=== PATIENT | female | born 1980 | race Caucasian/White ===

== ENCOUNTER 2016-12-26 18:06 | Emergency (ER) | payer BC ==
[~2016-12-26] VITALS: Ht 177.8 cm; Wt 107.4 kg
[~2016-12-26 18:06] MED LIST: ALPR-411 PO; BIOTCAP2 PO; BUPR100T8 PO; CALCTAB7 PO; CYAN10002 INJ; DIPH-416 PO; ESTR0.5T3 PO; FROV2.5T5 PO; LAMO200T PO; LAMO200T38 PO; LCTXP PO; LEVO75TA PO; LITH600C PO; LTHSR/300 PO; MAGN400T6 PO; MELO15TA10 PO; OMEP40CA PO; OXYC-57 PO; PEDICHW50 PO; PRAM1TAB47 PO; PROP20TA4 PO; RISP1TAB68 PO; TIZA4CAP PO; ZNTT/150 PO
[2016-12-26 18:10] VITALS: TEMP 36.7; Ht 177.8 cm; Wt 107.4 kg
[2016-12-26] MEDS ORDERED: KETOROLAC TROMETHAMINE 30 MG/ML VIAL IV STA (18:20)
[2016-12-26] MEDS ORDERED: ONDANSETRON INJ 2 MG/ML 2 ML VIAL IV STA (18:20)
[2016-12-26] MEDS ORDERED: MAGN400T6 PO (18:42)
[2016-12-26] MEDS ORDERED: PRAM1TAB47 PO (18:42)
[2016-12-26] MEDS ORDERED: PRED10TA PO (18:42)
[2016-12-26] MEDS ORDERED: RISP1TAB68 PO (18:42)
[2016-12-26] MEDS ORDERED: ESTR0.5T3 PO (18:42)
[2016-12-26] MEDS ORDERED: PROP20TA4 PO (18:42)
[2016-12-26] MEDS ORDERED: TIZA4CAP PO (18:42)
[2016-12-26] MEDS ORDERED: MELO15TA10 PO (18:42)
[2016-12-26] MEDS ORDERED: AZIT250T PO (18:42)
[2016-12-26] MEDS ORDERED: OMEP40CA41 PO (18:45)
[2016-12-26 18:53] LABS: BASO % 0.1 %; BASO ABS # 0.01 K/uL (0-0.2); COMPLETE YES; EOS % 0.2 %; HEMATOCRIT 40.3 % (37-47); IG% 0.2 %; LYMPH % 11.1 %; LYMPH ABS # 1.23 K/uL (1.2-3.4); MEAN CELL VOLUME 89.6 fL (80-100); MEAN CORPUSCULAR HEMOGLOBIN 29.8 pg (25-34); MEAN CORPUSCULAR HGB CONC 33.3 g/dl (32-36); MEAN PLATELET VOLUME 9.9 fL (7.4-10.4); MONO % 4.7 %; NEUT % 83.7 %; PLATELET COUNT 330 K/uL (130-400); WHITE BLOOD COUNT 11.05 K/uL (4.8-10.8)
[2016-12-26 19:03] LABS: MANUAL MICROSCOPIC REQUIRED? NO; REVIEW REQ? NO; URINE APPEARANCE CLEAR (CLEAR); URINE BILIRUBIN NEG (NEG); URINE COLOR YELLOW; URINE NITRITE NEG (NEG); URINE SPECIFIC GRAVITY 1.014 (1.000-1.030); UROBILINOGEN NEG (NEG); ZZUR CULT IF INDIC CLEAN CATCH NO
[2016-12-26 19:09] LABS: ALT/SGPT 21 U/L (12-78); BLOOD UREA NITROGEN 15 mg/dl (7-18); BUN/CREATININE RATIO 16.2 (10-20); CALCIUM 9.7 mg/dl (8.5-10.1); CARBON DIOXIDE 24 mmol/L (21-32); CHLORIDE 109 mmol/L (98-107); CREATININE 0.93 mg/dl (0.60-1.20); GLUCOSE 112 mg/dl (70-99); POTASSIUM 4.1 mmol/L (3.5-5.1); SODIUM 142 mmol/L (136-145)
[2016-12-26 19:12] LABS: ALKALINE PHOSPHATASE 110 U/L (45-117); AST/SGOT 11 U/L (15-37)
--- NOTE | 2016-12-26 19:35 | DIAGNOSTIC IMAGING REPORT ---
LUMBAR SPINE 2 OR 3 VIEWS CLINICAL HISTORY: lower back pain pain COMPARISON STUDY: None FINDINGS: Negative study. No evidence for compression deformity IMPRESSION: Negative study Electronically signed by: Ankush Pulido M.D. 12/26/2016 7:34 PM Dictated Date/Time: 12/26/2016 7:33 PM
[2016-12-26 20:00] VITALS: BP 132/80; PULSE 54; O2SAT 97
--- NOTE | 2016-12-26 20:56 | EMERGENCY ROOM VISIT NOTE ---
History Report prepared by Rock: Colleen Jacobo Under the Supervision of: Dr. Darshan Vizcaino D.O. First contact with patient: 18:12 Chief Complaint: URINARY SYMPTOMS Stated Complaint: SYMPTOMS OF KIDNEY INFECTION Nursing Triage Summary: pt report yesterday started with bilat lower back pain radiates around to abd. has hx of kidney infections. History of Present Illness The patient is a 36 year old female who presents to the Emergency Room with complaints of constant urinary symptoms beginning yesterday. The patient complains of bilateral lower back pain that radiates to both flanks. She also complains of urinary frequency, urgency and dysuria. She notes that she has a history of kidney infections and believes that that is what she has today. She denies any vomiting, cough, chest pain, shortness of breath, heavy lifting, vaginal bleeding, and vaginal discharge. She notes that she had bladder reconstructive surgery. The patient reports that she is being treated for a sinus infection and is on a z pac that she she started 2 days ago. She notes that she took 2 days of 50 mg. She states that she had a complete hysterectomy and appendectomy previously. Source of History: patient Onset: yesterday Position: other (urinary) Quality: burning Timing: constant Modifying Factors (Worsening): urination Associated Symptoms: + back pain, + nausea, + urinary symptoms, No SOB, No chest pain, No cough, No vomiting Note: She denies any heavy lifting, vaginal bleeding, and vaginal discharge. Review of Systems See HPI for pertinent positives & negatives. A total of 10 systems reviewed and were otherwise negative. Past Medical & Surgical Medical Problems: (1) Allergic rhinitis (2) Bipolar disorder (3) Depression (4) Endometriosis (5) Hypothyroidism (6) Migraine (7) Obesity (BMI 30-39.9) (8) Restless leg syndrome (9) Sleep apnea (10) Stricture of ureter Surgical Problems: (1) H/O gastric bypass (2) History of appendectomy (3) History of bladder surgery (4) History of hysterectomy (5) History of tonsillectomy and adenoidectomy Family History Diabetes mellitus Heart disease Hypertension Social History Smoking Status: Never Smoker Alcohol Use: none Drug Use: none Marital Status: single Housing Status: lives with family Occupation Status: employed Current/Historical Medications Scheduled Azithromycin (Zithromax), 250 MG PO DAILY Biotin (Biotin 5000), 5 MG PO DAILY Bupropion (Wellbutrin Sr), 100 MG PO BID Calcium Carbonate-Vitamin D W/ (Caltrate 600 Plus), 2 TAB PO BID Estradiol (Estradiol), 1 TAB PO DAILY Frovatriptan Succinate (Frova), 2.5 MG PO PRN/UD Lactobacillus Acidophilus (Lactinex Granules), 1 GM PO TIDM Lamotrigine (Lamictal), 200 MG PO QAM Lamotrigine (Lamictal), 100 MG PO HS Levothyroxine Sodium (Synthroid), 75 MCG PO DAILY Chisana Carbonate (Chisana Carbonate), 100 MG PO QAM Chisana Carbonate (Chisana Carbonate), 300 MG PO HS Magnesium Oxide (Mag-Ox), 400 MG PO DAILY Meloxicam (Mobic), 15 MG PO DAILY Omeprazole (Prilosec), 40 MG PO DAILY Pramipexole Dihydrochloride (Mirapex), 0.5 MG PO QPM Prednisone (Prednisone), 10 MG PO DAILY Propranolol Hcl (Inderal), 20 MG PO BID Risperidone (Risperdal), 1 MG PO QPM Scheduled PRN Alprazolam (Alprazolam), 0.5 MG PO BID PRN for Anxiety/Insomnia Diphenoxylate/Atropine (Lomotil), 1 TAB PO Q6 PRN for Diarrhea Ranitidine (Zantac), 150 MG PO BID PRN for ACID REFLUX Tizanidine (Zanaflex), 4 MG PO HS PRN for Muscle Spasms Allergies Coded Allergies: Quinolones (Verified Allergy, Mild, LVQ = HIVES, MELVIN. CIPRO, 01/09/16) Butorphanol (Verified Allergy, Unknown, _, 01/09/16) Iodine (Verified Allergy, Unknown, SEAFOOD = SWELLING, HIVES, 01/09/16) Levofloxacin (Verified Allergy, Unknown, HIVES, 01/09/16) TOLERATES CIPRO PER CONVERSATION WITH DR. HILTON Shellfish (Verified Allergy, Unknown, HIVES, 01/09/16) Physical Exam Vital Signs Date Time Temp Pulse Resp B/P Pulse Ox O2 Delivery O2 Flow Rate FiO2 12/26/16 20:00 54 16 132/80 97 12/26/16 18:10 36.7 55 18 114/71 97 Room Air Physical Exam GENERAL: sitting up in bed, no distress, non-toxic EYE EXAM: normal conjunctiva OROPHARYNX: no exudate, no erythema, lips, buccal mucosa, and tongue normal and mucous membranes are moist NECK: supple, no nuchal rigidity, no adenopathy, non-tender LUNGS: Clear to auscultation. Normal chest wall mechanics HEART: no murmurs, S1 normal and S2 normal ABDOMEN: abdomen soft, non-tender, normo-active bowel sounds, no masses, no rebound or guarding. BACK: Mild bilateral lumbar paraspinal tenderness, no CVA tenderness. SKIN: no rashes and no bruising UPPER EXTREMITIES: upper extremities are grossly normal. LOWER EXTREMITIES: No pitting edema. NEURO EXAM: Normal sensorium, cranial nerves II-XII grossly intact, normal speech, no gross weakness of arms, no gross weakness of legs. Medical Decision & Procedures ER Provider Diagnostic Interpretation: Xray results per the radiologist and my interpretation. LUMBAR SPINE 2 OR 3 VIEWS FINDINGS: Negative study. No evidence for compression deformity IMPRESSION: Negative study Electronically signed by: Ankush Pulido M.D. 12/26/2016 7:34 PM Dictated Date/Time: 12/26/2016 7:33 PM Laboratory Results 12/26/16 18:40 Red Blood Count 4.50, Mean Corpuscular Volume 89.6, Mean Corpuscular Hemoglobin 29.8, Mean Corpuscular Hemoglobin Concent 33.3, Mean Platelet Volume 9.9, Neutrophils (%) (Auto) 83.7, Lymphocytes (%) (Auto) 11.1, Monocytes (%) (Auto) 4.7, Eosinophils (%) (Auto) 0.2, Basophils (%) (Auto) 0.1, Neutrophils # (Auto) 9.25, Lymphocytes # (Auto) 1.23, Monocytes # (Auto) 0.52, Eosinophils # (Auto) 0.02, Basophils # (Auto) 0.01 12/26/16 18:40 Test 12/26/16 18:33 12/26/16 18:40 Urine Color YELLOW Urine Appearance CLEAR (CLEAR) Urine pH 7.0 (4.5-7.5) Urine Specific [place] 1.014 (1.000-1.030) Urine Protein NEG (NEG) Urine Glucose (UA) NEG (NEG) Urine Ketones NEG (NEG) Urine Occult Blood NEG (NEG) Urine Nitrite NEG (NEG) Urine Bilirubin NEG (NEG) Urine Urobilinogen NEG (NEG) Urine Leukocyte Esterase NEG (NEG) Urine WBC (Auto) 0 /hpf (0-5) Urine RBC (Auto) 0-4 /hpf (0-4) Urine Hyaline Casts (Auto) 0 /lpf (0-5) Urine Epithelial Cells (Auto) 5-10 /lpf (0-5) Urine Bacteria (Auto) NEG (NEG) Urine Test NEG (NEG) White Blood Count 11.05 K/uL (4.8-10.8) Red Blood Count 4.50 M/uL (4.2-5.4) Hemoglobin 13.4 g/dL (12.0-16.0) Hematocrit 40.3 % (37-47) Mean Corpuscular Volume 89.6 fL (80-100) Mean Corpuscular Hemoglobin 29.8 pg (25-34) Mean Corpuscular Hemoglobin Concent 33.3 g/dl (32-36) Platelet Count 330 K/uL (130-400) Mean Platelet Volume 9.9 fL (7.4-10.4) Neutrophils (%) (Auto) 83.7 % Lymphocytes (%) (Auto) 11.1 % Monocytes (%) (Auto) 4.7 % Eosinophils (%) (Auto) 0.2 % Basophils (%) (Auto) 0.1 % Neutrophils # (Auto) 9.25 K/uL (1.4-6.5) Lymphocytes # (Auto) 1.23 K/uL (1.2-3.4) Monocytes # (Auto) 0.52 K/uL (0.11-0.59) Eosinophils # (Auto) 0.02 K/uL (0-0.5) Basophils # (Auto) 0.01 K/uL (0-0.2) RDW Standard Deviation 41.7 fL (36.4-46.3) RDW Coefficient of Variation 12.7 % (11.5-14.5) Immature Granulocyte % (Auto) 0.2 % Immature Granulocyte # (Auto) 0.02 K/uL (0.00-0.02) Anion Gap 9.0 mmol/L (3-11) Est Creatinine Clear Calc Drug Dose 111.0 ml/min Estimated GFR () 91.6 Estimated GFR (Non- 79.1 BUN/Creatinine Ratio 16.2 (10-20) Calcium Level 9.7 mg/dl (8.5-10.1) Total Bilirubin 0.3 mg/dl (0.2-1) Direct Bilirubin < 0.1 mg/dl (0-0.2) Aspartate Amino Transf (AST/SGOT) 11 U/L (15-37) Alanine Aminotransferase (ALT/SGPT) 21 U/L (12-78) Alkaline Phosphatase 110 U/L (45-117) Total Protein 7.1 gm/dl (6.4-8.2) Albumin 3.7 gm/dl (3.4-5.0) Lipase 99 U/L (73-393) Laboratory results per my review. Medications Administered Medications (Trade) Dose Ordered Sig/Gely Route Start Time Stop Time Status Last Admin Dose Admin Ketorolac Tromethamine (Toradol Inj) 30 mg NOW STAT IV 12/26/16 18:20 12/26/16 18:21 DC 12/26/16 18:44 30 MG Ondansetron HCl (Zofran Inj) 4 mg NOW STAT IV 12/26/16 18:20 12/26/16 18:21 DC 12/26/16 18:43 4 MG ED Course ED COURSE: Vital signs were reviewed and showed bradycardia The patients medical record was reviewed The above diagnostic studies were performed and reviewed. ED treatments and interventions as stated above. 1811: The patient was evaluated in room B2. A complete history and physical examination was performed. 0: Zofran Inj 4mg IV, Toradol Inj 30mg IV. 1914: I updated the patient. She declines a pelvic exam. 1922: Upon reevaluation, the patient is hemodynamically stable.I discussed my findings with the patient and she understands and agrees with the treatment plan. Based on the patients age, coexisting illnesses, exam and lab findings the decision to treat as an outpatient was made. The patient remained stable while under my care. The patient appeared well at the time of discharge. Medical Decision Differential diagnoses includes but is not limited to gastritis, peptic ulcer disease, GERD, gallbladder disease, pancreatitis, small bowel obstruction, acute coronary syndrome, pericarditis, ischemic bowel, irritable bowel disease, irritable bowel syndrome, appendicitis, diverticulitis, malignancy, hernia, urinary tract infection, torsion, /ectopic , perforation, trauma, infectious. Patient is a 36-year-old female who presents the ER for bilateral lower back pain associated with urinary frequency, dysuria and urgency. She has his currently being treated with a Z-Saqib for sinus infection. Labs show a leukocytosis or anemia. BMP along with LFTs, bilirubin and lipase is negative. UA was completely negative with a negative . X-rays of her lumbar spine were negative. She has had normal bowel movements. I do not believe that she has an obstruction. Her abdomen was completely benign. Recommended pelvic but she declined. At this time uncertain of the true etiology of her symptoms as her UA is completely clean. I do feel the back pain is muscle skeletal as it is reproducible in the lower lumbar paraspinal region. Uncertain of the cause of the urinary frequency, urgency and dysuria. Recommended following up with her primary care doctor in 1-2 days for repeat urine. Patient was well-appearing and discharged follow with her PCP. Discussed with Pt concerning signs and symptoms to watch out for. Pt was instructed to follow up with their PCP and discussed with the patient their option to return to the ED at anytime for persistent or worsening symptoms. The appropriate anticipatory guidance and out-patient management, including indications for return to the emergency department, were explained at length to the patient and understood. Impression Primary Impression: Lower back pain Additional Impression: Symptoms involving urinary system Scribe Attestation The scribe's documentation has been prepared under my direction and personally reviewed by me in its entirety. I confirm that the note above accurately reflects all work, treatment, procedures, and medical decision making performed by me. Departure Information Dispostion Home / Self-Care Referrals Estevan Carter M.D.([place]) (PCP) Forms HOME CARE DOCUMENTATION FORM, IMPORTANT VISIT INFORMATION Patient Instructions Back Pain - [facility], Dysuria, My [facility] Additional Instructions Please follow up with your primary care doctor with in the next 24 hours. Any worsening of your symptoms, please return to the ED immediately. This includes fevers greater than 100.4, worsening of your urinary symptoms, weakness or numbness in her legs, worsening pain in her back, or any other concerning signs or symptoms from your standpoint. Please make sure that you follow with her primary care doctor as stated above if her symptoms persist to have a repeat UA/urinalysis. Your UA here and blood work was unremarkable but if your symptoms persist you must follow up. Problem Qualifiers Primary Impression: Lower back pain Chronicity: acute Back pain laterality: bilateral Sciatica presence: unspecified whether sciatica present Qualified Codes: M54.5 - Low back pain
== END 2016-12-26 20:02 | disposition home or self-care (01) ==
LOC: C.EDB 18:07
DX: M54.5 Low back pain (principal); R11.0 Nausea; R35.0 Frequency of micturition; R39.15 Urgency of urination; R30.0 Dysuria; F31.9 Bipolar disorder, unspecified; E03.9 Hypothyroidism, unspecified; G47.30 Sleep apnea, unspecified; Z79.899 Other long term (current) drug therapy; Z88.8 Allergy status to other drugs, medicaments and biological substances; Z87.448 Personal history of other diseases of urinary system; Z83.3 Family history of diabetes mellitus; Z82.49 Family history of ischemic heart disease and other diseases of the circulatory system

== ENCOUNTER 2017-01-25 13:47 | Emergency (ER) | payer BC ==
[~2017-01-25] VITALS: Ht 177.8 cm; Wt 109.8 kg
[~2017-01-25 13:47] MED LIST changes: +AZIT250T PO; -CYAN10002 INJ; -OMEP40CA PO; +OMEP40CA41 PO; -OXYC-57 PO; -PEDICHW50 PO; +PRED10TA PO; -ZNTT/150 PO
[2017-01-25 13:59] VITALS: TEMP 36.7; Ht 177.8 cm; Wt 109.8 kg
[2017-01-25] MEDS ORDERED: ONDANSETRON INJ 2 MG/ML 2 ML VIAL IV STA (14:15)
[2017-01-25] MEDS ORDERED: SODIUM CHLORIDE 0.9% 1000ML 1,000 ML IV STA (14:15)
[2017-01-25] MEDS ORDERED: MECLIZINE HCL 25 MG TAB PO STA (14:15)
[2017-01-25 14:34] LABS: BASO % 0.3 %; BASO ABS # 0.02 K/uL (0-0.2); COMPLETE YES; EOS % 7.9 %; HEMATOCRIT 40.3 % (37-47); IG% 0.4 %; LYMPH % 21.3 %; LYMPH ABS # 1.69 K/uL (1.2-3.4); MEAN CELL VOLUME 91.6 fL (80-100); MEAN CORPUSCULAR HGB CONC 32.8 g/dl (32-36); MEAN PLATELET VOLUME 9.7 fL (7.4-10.4); MONO % 6.7 %; NEUT % 63.4 %; PLATELET COUNT 322 K/uL (130-400); WHITE BLOOD COUNT 7.93 K/uL (4.8-10.8)
[2017-01-25 14:50] LABS: URINE APPEARANCE CLEAR (CLEAR); URINE BILIRUBIN NEG (NEG); URINE COLOR YELLOW; URINE NITRITE NEG (NEG); URINE PH 7.5 (4.5-7.5); URINE SPECIFIC GRAVITY 1.007 (1.000-1.030); UROBILINOGEN NEG (NEG); ZZUR CULT IF INDIC CLEAN CATCH NO
[2017-01-25 14:53] LABS: MANUAL MICROSCOPIC REQUIRED? NO; REVIEW REQ? NO
[2017-01-25 14:55] LABS: ALT/SGPT 31 U/L (12-78); AST/SGOT 17 U/L (15-37); BLOOD UREA NITROGEN 12 mg/dl (7-18); BUN/CREATININE RATIO 12.6 (10-20); CALCIUM 9.3 mg/dl (8.5-10.1); CARBON DIOXIDE 27 mmol/L (21-32); CHLORIDE 110 mmol/L (98-107); CREATININE 0.99 mg/dl (0.60-1.20); GLUCOSE 99 mg/dl (70-99); POTASSIUM 4.1 mmol/L (3.5-5.1); SODIUM 143 mmol/L (136-145)
--- NOTE | 2017-01-25 15:00 | DIAGNOSTIC IMAGING REPORT ---
HEAD CT NONCONTRAST CT DOSE: 638.56 mGycm HISTORY: dizziness, nausea TECHNIQUE: Multiaxial CT images of the head were performed without the use of intravenous contrast. Automated exposure control was utilized for this study. Comparison: None. Findings: Small fluid level within the left maxillary sinus. The calvarium and skull base are intact. The ventricles and sulci are within normal limits. There is no mass, hematoma, midline shift, or acute infarct. Impression: No acute intracranial abnormality. Small fluid level within the left maxillary sinus. Electronically signed by: Hebert Rose M.D. 01/25/2017 2:58 PM Dictated Date/Time: 01/25/2017 2:55 PM
[2017-01-25 15:06] LABS: ALB/GLOB RATIO 1.1 (0.9-2); ALKALINE PHOSPHATASE 104 U/L (45-117); THYROID STIMULATING HORMONE 0.592 uIu/ml (0.300-4.500)
[2017-01-25] MEDS ORDERED: MECL1TAB42 PO (15:17)
[2017-01-25] MEDS ORDERED: METH4PAK PO (15:17)
[2017-01-25] MEDS ORDERED: AMOX875T PO (15:17)
--- NOTE | 2017-01-25 15:18 | EMERGENCY ROOM VISIT NOTE ---
History First contact with patient: 14:02 Chief Complaint: NAUSEA Stated Complaint: SHAKEY,DIZZY,NAUSEA Nursing Triage Summary: Patient c/o being shakey, dizzy and nauseous. Started Tuesday when she got home from [place] "but it's getting worse". Has had cold/sinus infection since before she went to [place]. History of Present Illness The patient is a 36 year old female who presents to the Emergency Room with complaints of dizziness, nausea and shakiness. The patient states that she returned from [place] 4 days ago and has been nauseous and dizzy since then. She states that prior to going to [place], she had cold symptoms and they have been persistent. She describes the dizziness as a feeling of the room spinning. She states the symptoms have been worsening over the past few days. She has been nauseous but has not vomited. She states she has had a headache off-and-on. It is not the worst headache of her life. The patient states her symptoms are constant. She denies any neck pain, fevers, chest pain, shortness of breath, numbness, weakness, blurred vision or slurred speech. She denies any history of vertigo or dizziness. Review of Systems A complete 10-point Review of Systems was discussed with the patient, with pertinent positives and negatives listed in the History of Present Illness. All remaining Review of Systems questions can be considered negative unless otherwise specified. Past Medical/Surgical History Medical Problems: (1) Allergic rhinitis (2) Bipolar disorder (3) Depression (4) Endometriosis (5) Hypothyroidism (6) Migraine (7) Obesity (BMI 30-39.9) (8) Restless leg syndrome (9) Sleep apnea (10) Stricture of ureter Surgical Problems: (1) H/O gastric bypass (2) History of appendectomy (3) History of bladder surgery (4) History of hysterectomy (5) History of tonsillectomy and adenoidectomy Family History Diabetes mellitus Heart disease Hypertension Social History Smoking Status: Former Smoker Alcohol Use: none Drug Use: none Marital Status: single Housing Status: lives with family Occupation Status: employed Current/Historical Medications Scheduled Amoxicillin & Pot Clavulanate (Augmentin 875-125 mg), 1 TAB PO BID Biotin (Biotin 5000), 5 MG PO DAILY Bupropion (Wellbutrin Sr), 100 MG PO BID Calcium Carbonate-Vitamin D W/ (Caltrate 600 Plus), 2 TAB PO BID Fluconazole (Diflucan), 150 MG PO DAILY Frovatriptan Succinate (Frova), 2.5 MG PO PRN/UD Lactobacillus Acidophilus (Lactinex Granules), 1 GM PO TIDM Lamotrigine (Lamictal), 200 MG PO QAM Lamotrigine (Lamictal), 100 MG PO HS Levothyroxine Sodium (Synthroid), 75 MCG PO DAILY [place] Carbonate ([place] Carbonate), 100 MG PO QAM [place] Carbonate ([place] Carbonate), 300 MG PO HS Magnesium Oxide (Mag-Ox), 400 MG PO DAILY Meloxicam (Mobic), 15 MG PO DAILY Methylprednisolone (Medrol Dosepak), 0 PO DAILY Omeprazole (Prilosec), 40 MG PO DAILY Pramipexole Dihydrochloride (Mirapex), 0.5 MG PO QPM Propranolol Hcl (Inderal), 20 MG PO BID Ranitidine (Zantac), 150 MG PO BID Risperidone (Risperdal), 1 MG PO QPM Tizanidine (Zanaflex), 4 MG PO HS Scheduled PRN Alprazolam (Alprazolam), 0.5 MG PO BID PRN for Anxiety/Insomnia Diphenoxylate/Atropine (Lomotil), 1 TAB PO Q6 PRN for Diarrhea Meclizine Hcl (Meclizine Hcl), 1 TAB PO TID PRN for Dizziness or Vertigo Allergies Coded Allergies: Quinolones (Verified Allergy, Mild, LVQ = HIVES, MELVIN. CIPRO, 01/25/17) Butorphanol (Verified Allergy, Unknown, _, 01/25/17) Iodine (Verified Allergy, Unknown, SEAFOOD = SWELLING, HIVES, 01/25/17) Levofloxacin (Verified Allergy, Unknown, HIVES, 01/25/17) TOLERATES CIPRO PER CONVERSATION WITH DR. [place] Shellfish (Verified Allergy, Unknown, HIVES, 01/25/17) Physical Exam Vital Signs Date Time Temp Pulse Resp B/P Pulse Ox O2 Delivery O2 Flow Rate FiO2 01/25/17 15:30 54 18 112/66 96 Room Air 01/25/17 13:59 36.7 67 17 136/89 97 Room Air Physical Exam VITALS: Vitals are noted on the nurse's note and reviewed by myself. Vital signs stable. GENERAL: This is a 36-year-old female, in no acute distress, nondiaphoretic, well-developed well-nourished. SKIN: The skin was without rashes. HEAD: Normocephalic atraumatic. EARS: External auditory canals clear, tympanic membranes pearly negron without erythema or effusion bilaterally. EYES: Pupils equal round and reactive to light and accommodation. Conjunctivae without injection, sclerae without icterus. Extraocular movements intact. MOUTH: Mucous membranes moist. Tonsils are not enlarged. Pharynx without erythema or exudate. NECK: Supple without nuchal rigidity. No lymphadenopathy. HEART: Regular rate and rhythm without murmurs gallops or rubs. LUNGS: Clear to auscultation bilaterally without wheezes, rales or rhonchi. ABDOMEN: Positive bowel sounds x 4. Soft, nontender to palpation. MUSCULOSKELETAL: Full range of motion bilateral upper and lower extremities. Strength 5/5 throughout. Normal gait. NEURO: Patient was alert and oriented to person place and time. Normal sensation to light and sharp touch. Deep tendon reflexes 2+ throughout. No focal neurological deficits. Normal finger to nose testing. Normal rapid alternating movements. Negative Romberg and pronator drift. Medical Decision & Procedures ER Provider Diagnostic Interpretation: HEAD CT NONCONTRAST CT DOSE: 638.56 mGycm HISTORY: dizziness, nausea TECHNIQUE: Multiaxial CT images of the head were performed without the use of intravenous contrast. Automated exposure control was utilized for this study. Comparison: None. Findings: Small fluid level within the left maxillary sinus. The calvarium and skull base are intact. The ventricles and sulci are within normal limits. There is no mass, hematoma, midline shift, or acute infarct. Impression: No acute intracranial abnormality. Small fluid level within the left maxillary sinus. Laboratory Results 01/25/17 14:20 Red Blood Count 4.40, Mean Corpuscular Volume 91.6, Mean Corpuscular Hemoglobin 30.0, Mean Corpuscular Hemoglobin Concent 32.8, Mean Platelet Volume 9.7, Neutrophils (%) (Auto) 63.4, Lymphocytes (%) (Auto) 21.3, Monocytes (%) (Auto) 6.7, Eosinophils (%) (Auto) 7.9, Basophils (%) (Auto) 0.3, Neutrophils # (Auto) 5.03, Lymphocytes # (Auto) 1.69, Monocytes # (Auto) 0.53, Eosinophils # (Auto) 0.63, Basophils # (Auto) 0.02 01/25/17 14:20 Test 01/25/17 14:20 White Blood Count 7.93 K/uL (4.8-10.8) Red Blood Count 4.40 M/uL (4.2-5.4) Hemoglobin 13.2 g/dL (12.0-16.0) Hematocrit 40.3 % (37-47) Mean Corpuscular Volume 91.6 fL (80-100) Mean Corpuscular Hemoglobin 30.0 pg (25-34) Mean Corpuscular Hemoglobin Concent 32.8 g/dl (32-36) Platelet Count 322 K/uL (130-400) Mean Platelet Volume 9.7 fL (7.4-10.4) Neutrophils (%) (Auto) 63.4 % Lymphocytes (%) (Auto) 21.3 % Monocytes (%) (Auto) 6.7 % Eosinophils (%) (Auto) 7.9 % Basophils (%) (Auto) 0.3 % Neutrophils # (Auto) 5.03 K/uL (1.4-6.5) Lymphocytes # (Auto) 1.69 K/uL (1.2-3.4) Monocytes # (Auto) 0.53 K/uL (0.11-0.59) Eosinophils # (Auto) 0.63 K/uL (0-0.5) Basophils # (Auto) 0.02 K/uL (0-0.2) RDW Standard Deviation 43.0 fL (36.4-46.3) RDW Coefficient of Variation 12.8 % (11.5-14.5) Immature Granulocyte % (Auto) 0.4 % Immature Granulocyte # (Auto) 0.03 K/uL (0.00-0.02) Urine Color YELLOW Urine Appearance CLEAR (CLEAR) Urine pH 7.5 (4.5-7.5) Urine Specific [place] 1.007 (1.000-1.030) Urine Protein NEG (NEG) Urine Glucose (UA) NEG (NEG) Urine Ketones NEG (NEG) Urine Occult Blood NEG (NEG) Urine Nitrite NEG (NEG) Urine Bilirubin NEG (NEG) Urine Urobilinogen NEG (NEG) Urine Leukocyte Esterase NEG (NEG) Urine Test NEG (NEG) Anion Gap 6.0 mmol/L (3-11) Est Creatinine Clear Calc Drug Dose 105.4 ml/min Estimated GFR () 85.0 Estimated GFR (Non- 73.3 BUN/Creatinine Ratio 12.6 (10-20) Calcium Level 9.3 mg/dl (8.5-10.1) Total Bilirubin 0.3 mg/dl (0.2-1) Aspartate Amino Transf (AST/SGOT) 17 U/L (15-37) Alanine Aminotransferase (ALT/SGPT) 31 U/L (12-78) Alkaline Phosphatase 104 U/L (45-117) Troponin I < 0.015 ng/ml (0-0.045) Total Protein 6.9 gm/dl (6.4-8.2) Albumin 3.6 gm/dl (3.4-5.0) Globulin 3.3 gm/dl (2.5-4.0) Albumin/Globulin Ratio 1.1 (0.9-2) Thyroid Stimulating Hormone (TSH) 0.592 uIu/ml (0.300-4.500) Medications Administered Medications (Trade) Dose Ordered Sig/Gely Route Start Time Stop Time Status Last Admin Dose Admin Sodium Chloride (Nss 1000ml) 1,000 ml @ 999 mls/hr Q1H1M STAT IV 01/25/17 14:15 01/25/17 15:15 DC 01/25/17 14:15 999 MLS/HR Meclizine HCl (Antivert Tab) 25 mg NOW STAT PO 01/25/17 14:15 01/25/17 14:20 DC 01/25/17 14:57 25 MG Ondansetron HCl (Zofran Inj) 4 mg NOW STAT IV 01/25/17 14:15 01/25/17 14:20 DC 01/25/17 14:57 4 MG ECG Indication: other Rate (beats per minute): 56 Rhythm: sinus bradycardia Findings: no acute ischemic change, no ectopy Change: no significant change Medical Decision Differential diagnosis includes BPPV, meningitis, encephalitis, sinusitis, CVA, TIA, elect avoid abnormality, among others. The patient was evaluated as above. Labs were drawn and IV access was obtained. Imaging studies were performed and read by radiology as above. The patient was medicated with 25 mg meclizine, 1 L normal saline solution and 4 mg Zofran. The patient was reassessed multiple times during their stay in the emergency department and remained in stable condition. The patient is a 36-year-old female who presents today complaining of dizziness she does report recent cold symptoms and I was suspicious of possible labyrinthitis.. Labs revealed no leukocytosis, anemia or concerning electrolyte abnormalities. Urinalysis was not suggestive of infection. Urine was negative. Troponin was not elevated. EKG was interpreted by myself and showed a normal sinus rhythm without evidence of ischemia. The patient did have relief with meclizine and Zofran. CT of the head showed no acute intracranial abnormalities, but did show evidence of possible maxillary sinus disease. Given the patient's persistent cold-like symptoms and now dizziness, I will treat the sinusitis with Augmentin and a steroid. She was also given a prescription for meclizine and instructed to follow-up with the primary care provider for further evaluation. She will return here for any new/ concerning symptoms or worsening of her current condition. Based on the patient's presentation, lab results, and imaging studies, I feel the patient is stable for outpatient treatment. The patient's case was reviewed with Dr. Morocho, ED attending physician, who agreed with my assessment and treatment plan. Discharge instructions were reviewed with the patient. The patient verbalized understanding of my assessment and treatment plan and was discharged home in good condition. Impression Primary Impression: Maxillary sinusitis Additional Impression: Dizziness Departure Information Dispostion Home / Self-Care Condition GOOD Prescriptions Fluconazole (DIFLUCAN) 150 Mg Tab 150 MG PO DAILY, #2 TAB Take 1 dose at the first sign of symptoms, if symptoms persist in 3 days take a second dose. Prov: Andreia Izaguirre PA-C 01/25/17 Meclizine Hcl (MECLIZINE HCL) 25 Mg Tab 1 TAB PO TID Y for Dizziness or Vertigo for 5 Days, #15 TAB Prov: Andreia Izaguirre PA-C 01/25/17 Methylprednisolone (MEDROL DOSEPAK) 4 Mg Saqib 0 PO DAILY, #1 PKT Prov: Andreia Izaguirre PA-C 01/25/17 Amoxicillin & Pot Clavulanate (Augmentin 875-125 mg) 1 Tab Tab 1 TAB PO BID for 10 Days, #20 TAB Prov: Andreia Izaguirre PA-C 01/25/17 Referrals Estevan Carter M.D.([facility]) (PCP) Patient Instructions My [facility] [address] Additional Instructions Meclizine 3 times a day as needed for dizziness. You were prescribed Augmentin to be taken twice daily as prescribed. This is an antibiotic. All antibiotics have the potential to cause diarrhea. Stop this medication and contact a medical provider if you were to develop any significant adverse side effects including: wheezing, shortness of breath, passing out, vomiting, or a diffuse rash. Always take antibiotics as directed and COMPLETE the ENTIRE course regardless of the improvement of your symptoms. You have been prescribed a Medrol Dosepak. This is a steroid which will help decrease your inflammation. Take the medicine as prescribed. Take the ENTIRE 6 day course of the steroids. Follow-up with your primary care provider this week for further evaluation of your symptoms. Return to the emergency department with worsening dizziness, headaches, neck pain, fevers or any other new/concerning symptoms. Problem Qualifiers Primary Impression: Maxillary sinusitis Chronicity: acute Recurrence: non-recurrent Qualified Codes: J01.00 - Acute maxillary sinusitis, unspecified
[2017-01-25] MEDS ORDERED: FLUC150T PO (15:27)
[2017-01-25 15:30] VITALS: BP 112/66; PULSE 54; O2SAT 96
== END 2017-01-25 15:31 | disposition home or self-care (01) ==
LOC: C.EDB 13:49
DX: J01.00 Acute maxillary sinusitis, unspecified (principal); R42 Dizziness and giddiness; E03.9 Hypothyroidism, unspecified; E66.9 Obesity, unspecified; G47.30 Sleep apnea, unspecified; Z83.3 Family history of diabetes mellitus; Z82.49 Family history of ischemic heart disease and other diseases of the circulatory system; Z87.891 Personal history of nicotine dependence

== ENCOUNTER 2017-01-27 22:33 | Emergency (ER) | payer BC ==
[~2017-01-27] VITALS: Ht 177.8 cm; Wt 110.1 kg
[~2017-01-27 22:33] MED LIST changes: +AMOX875T PO; -AZIT250T PO; -ESTR0.5T3 PO; +FLUC150T PO; +MECL1TAB42 PO; +METH4PAK PO; -PRED10TA PO
[2017-01-27 22:35] VITALS: TEMP 36.7; Ht 177.8 cm; Wt 110.1 kg
[2017-01-27] MEDS ORDERED: DiphenhydrAMINE HCL 50 MG/ML VIAL IV STA (23:02)
[2017-01-27] MEDS ORDERED: SODIUM CHLORIDE 0.9% 1000ML 1,000 ML IV STA (23:02)
[2017-01-27] MEDS ORDERED: METOCLOPRAMIDE HCL INJ 5 MG/ML 2 ML VIAL IV STA (23:02)
[2017-01-27 23:53] LABS: HEMATOCRIT 40.5 % (37-47); MEAN CELL VOLUME 91.6 fL (80-100); MEAN CORPUSCULAR HEMOGLOBIN 30.1 pg (25-34); MEAN CORPUSCULAR HGB CONC 32.8 g/dl (32-36); MEAN PLATELET VOLUME 9.7 fL (7.4-10.4); PLATELET COUNT 333 K/uL (130-400); RED BLOOD COUNT 4.42 M/uL (4.2-5.4); WHITE BLOOD COUNT 11.09 K/uL (4.8-10.8)
[2017-01-27] MEDS: KETOROLAC TROMETHAMINE 30 MG/ML VIAL IV STA ×2 (23:54→23:55)
[2017-01-28 00:11] LABS: ALT/SGPT 32 U/L (12-78); AST/SGOT 17 U/L (15-37); BLOOD UREA NITROGEN 20 mg/dl (7-18); BUN/CREATININE RATIO 18.6 (10-20); CALCIUM 9.1 mg/dl (8.5-10.1); CARBON DIOXIDE 28 mmol/L (21-32); CHLORIDE 111 mmol/L (98-107); GLUCOSE 98 mg/dl (70-99); MAGNESIUM 2.5 mg/dl (1.8-2.4); POTASSIUM 3.9 mmol/L (3.5-5.1); SODIUM 145 mmol/L (136-145)
[2017-01-28 00:14] LABS: ALKALINE PHOSPHATASE 100 U/L (45-117)
[2017-01-28] MEDS ORDERED: OPTIRAY 320 IV PRN (00:15)
[2017-01-28 00:27] LABS: BASO % 0.3 %; BASO ABS # 0.03 K/uL (0-0.2); COMPLETE YES; EOS % 3.8 %; IG% 0.6 %; LYMPH % 13.2 %; LYMPH ABS # 1.46 K/uL (1.2-3.4); MONO % 9.6 %; NEUT % 72.5 %
--- NOTE | 2017-01-28 01:12 | EMERGENCY ROOM VISIT NOTE ---
History First contact with patient: 22:48 Chief Complaint: HEADACHE Stated Complaint: DIZZINESS, NAUSEA, MIGRAINE, COUGH, TIGHT CHEST History of Present Illness The patient is a 36 year old female who presents to the Emergency Room with complaints of headache, sinus pain or congestion, cough, chest pain, dizziness for the past few days who has had intermittent sinus problems for several years who was treated for sinus infection 3 weeks ago and again the other day. Patient had no prior CT imaging of her sinuses or has never seen an ENT doctor. She's had frequent sinus infections in the past. Patient had gastric bypass. She takes her multivitamins as directed. Patient denies neck stiffness, sore throat, abdominal pain, leg pain or swelling. She has traveled recently to [place] and back. Review of Systems See HPI for pertinent positives & negatives. A total of 10 systems reviewed and were otherwise negative. Past Medical/Surgical History Medical Problems: (1) Allergic rhinitis (2) Bipolar disorder (3) Depression (4) Endometriosis (5) Hypothyroidism (6) Migraine (7) Obesity (BMI 30-39.9) (8) Restless leg syndrome (9) Sleep apnea (10) Stricture of ureter Surgical Problems: (1) H/O gastric bypass (2) History of appendectomy (3) History of bladder surgery (4) History of hysterectomy (5) History of tonsillectomy and adenoidectomy Family History Diabetes mellitus Heart disease Hypertension Social History Smoking Status: Never Smoker Alcohol Use: none Drug Use: none Marital Status: single Housing Status: lives with family Occupation Status: employed Current/Historical Medications Scheduled Amoxicillin & Pot Clavulanate (Augmentin 875-125 mg), 1 TAB PO BID Biotin (Biotin 5000), 5 MG PO DAILY Bupropion (Wellbutrin Sr), 100 MG PO BID Calcium Carbonate-Vitamin D W/ (Caltrate 600 Plus), 2 TAB PO BID Fluconazole (Diflucan), 150 MG PO DAILY Frovatriptan Succinate (Frova), 2.5 MG PO PRN/UD Lactobacillus Acidophilus (Lactinex Granules), 1 GM PO TIDM Lamotrigine (Lamictal), 200 MG PO QAM Lamotrigine (Lamictal), 100 MG PO HS Levothyroxine Sodium (Synthroid), 75 MCG PO DAILY [place] Carbonate ([place] Carbonate), 100 MG PO QAM [place] Carbonate ([place] Carbonate), 300 MG PO HS Magnesium Oxide (Mag-Ox), 400 MG PO DAILY Meloxicam (Mobic), 15 MG PO DAILY Methylprednisolone (Medrol Dosepak), 0 PO DAILY Omeprazole (Prilosec), 40 MG PO DAILY Pramipexole Dihydrochloride (Mirapex), 0.5 MG PO QPM Propranolol Hcl (Inderal), 20 MG PO BID Ranitidine (Zantac), 150 MG PO BID Risperidone (Risperdal), 1 MG PO QPM Tizanidine (Zanaflex), 4 MG PO HS Scheduled PRN Alprazolam (Alprazolam), 0.5 MG PO BID PRN for Anxiety/Insomnia Diphenoxylate/Atropine (Lomotil), 1 TAB PO Q6 PRN for Diarrhea Meclizine Hcl (Meclizine Hcl), 1 TAB PO TID PRN for Dizziness or Vertigo Allergies Coded Allergies: Quinolones (Verified Allergy, Mild, LVQ = HIVES, MELVIN. CIPRO, 01/25/17) Butorphanol (Verified Allergy, Unknown, _, 01/25/17) Iodine (Verified Allergy, Unknown, SEAFOOD = SWELLING, HIVES, 01/25/17) Levofloxacin (Verified Allergy, Unknown, HIVES, 01/25/17) TOLERATES CIPRO PER CONVERSATION WITH DR. HILTON Shellfish (Verified Allergy, Unknown, HIVES, 01/25/17) Physical Exam Vital Signs Date Time Temp Pulse Resp B/P Pulse Ox O2 Delivery O2 Flow Rate FiO2 01/27/17 22:35 36.7 64 20 135/85 97 Room Air Physical Exam VITALS: Vitals are noted on the nurse's note and reviewed by myself. Vital signs stable. GENERAL: Pleasant female, in no acute distress, nondiaphoretic, well-developed well-nourished. SKIN: The skin was without rashes, erythema, edema, or bruising. There is no tenting of the skin. Capillary reflex less than 2 seconds. HEAD: Normocephalic atraumatic. EARS: External auditory canals clear, tympanic membranes pearly negron without erythema or effusion bilaterally. EYES: Pupils equal round and reactive to light and accommodation. Conjunctivae without injection, sclerae without icterus. Extraocular movements intact. NOSE: Patent, turbinates without inflammation or discharge. Bilateral maxillary and sinus sinus tenderness. MOUTH: Mucous membranes moist. Pharynx without erythema or exudate. Uvula midline. Airway patent. Tongue does not deviate. NECK: Supple without nuchal rigidity. No lymphadenopathy. No thyromegaly. Cervical spine is nontender. No JVD. HEART: Regular rate and rhythm without murmurs gallops or rubs. LUNGS: Clear to auscultation bilaterally without wheezes, rales or rhonchi. No dullness to percussion. No retractions or accessory muscle use. ABDOMEN: Positive bowel sounds x 4. Normal tympanic percussion. Soft, nontender, without masses or organomegaly. [place]rieta sign negative. No guarding or rebound tenderness. MUSCULOSKELETAL: No muscle atrophy, erythema, or edema noted. NEURO: Patient was alert and oriented to person place and time. Normal sensation to light and sharp touch. No focal neurological deficits. Medical Decision & Procedures Laboratory Results 01/27/17 23:39 Red Blood Count 4.42, Mean Corpuscular Volume 91.6, Mean Corpuscular Hemoglobin 30.1, Mean Corpuscular Hemoglobin Concent 32.8, Mean Platelet Volume 9.7, Neutrophils (%) (Auto) 72.5, Lymphocytes (%) (Auto) 13.2, Monocytes (%) (Auto) 9.6, Eosinophils (%) (Auto) 3.8, Basophils (%) (Auto) 0.3, Neutrophils # (Auto) 8.05, Lymphocytes # (Auto) 1.46, Monocytes # (Auto) 1.06, Eosinophils # (Auto) 0.42, Basophils # (Auto) 0.03 01/27/17 23:39 Test 01/27/17 23:39 01/27/17 23:46 White Blood Count 11.09 K/uL (4.8-10.8) Red Blood Count 4.42 M/uL (4.2-5.4) Hemoglobin 13.3 g/dL (12.0-16.0) Hematocrit 40.5 % (37-47) Mean Corpuscular Volume 91.6 fL (80-100) Mean Corpuscular Hemoglobin 30.1 pg (25-34) Mean Corpuscular Hemoglobin Concent 32.8 g/dl (32-36) Platelet Count 333 K/uL (130-400) Mean Platelet Volume 9.7 fL (7.4-10.4) Neutrophils (%) (Auto) 72.5 % Lymphocytes (%) (Auto) 13.2 % Monocytes (%) (Auto) 9.6 % Eosinophils (%) (Auto) 3.8 % Basophils (%) (Auto) 0.3 % Neutrophils # (Auto) 8.05 K/uL (1.4-6.5) Lymphocytes # (Auto) 1.46 K/uL (1.2-3.4) Monocytes # (Auto) 1.06 K/uL (0.11-0.59) Eosinophils # (Auto) 0.42 K/uL (0-0.5) Basophils # (Auto) 0.03 K/uL (0-0.2) RDW Standard Deviation 43.0 fL (36.4-46.3) RDW Coefficient of Variation 12.7 % (11.5-14.5) Immature Granulocyte % (Auto) 0.6 % Immature Granulocyte # (Auto) 0.07 K/uL (0.00-0.02) Anion Gap 6.0 mmol/L (3-11) Est Creatinine Clear Calc Drug Dose 95.0 ml/min Estimated GFR () 74.8 Estimated GFR (Non- 64.5 BUN/Creatinine Ratio 18.6 (10-20) Calcium Level 9.1 mg/dl (8.5-10.1) Magnesium Level 2.5 mg/dl (1.8-2.4) Total Bilirubin 0.3 mg/dl (0.2-1) Direct Bilirubin < 0.1 mg/dl (0-0.2) Aspartate Amino Transf (AST/SGOT) 17 U/L (15-37) Alanine Aminotransferase (ALT/SGPT) 32 U/L (12-78) Alkaline Phosphatase 100 U/L (45-117) Total Protein 6.7 gm/dl (6.4-8.2) Albumin 3.5 gm/dl (3.4-5.0) Lipase 135 U/L (73-393) Human Chorionic Gonadotropin, Qual NEG (NEG) Bedside D-Dimer > 450 ng/mlFEU (0-450) Bedside Troponin I 0.010 ng/ml (0-0.045) Medications Administered Medications (Trade) Dose Ordered Sig/Gely Route Start Time Stop Time Status Last Admin Dose Admin Ketorolac Tromethamine (Toradol Inj) 30 mg NOW STAT IV 01/27/17 23:02 01/27/17 23:05 DC 01/27/17 23:55 30 MG Metoclopramide HCl 10 mg 10 mg NOW STAT IV 01/27/17 23:02 01/27/17 23:05 DC 01/27/17 23:52 10 MG Sodium Chloride (Nss 1000ml) 1,000 ml @ 999 mls/hr Q1H1M STAT IV 01/27/17 23:02 01/28/17 00:02 DC 01/27/17 23:51 999 MLS/HR Diphenhydramine HCl (Benadryl Inj) 25 mg NOW STAT IV 01/27/17 23:02 01/27/17 23:05 DC 01/27/17 23:51 25 MG ED Course Prior records/ancillary studies reviewed. Triage Nursing notes reviewed. Additional history obtained from family. The patient's history was concerning for sinus pain and congestion, dizziness and chest pain. Differential diagnosis: Etiologies such as sinus infection, benign paroxysmal positional vertigo, vestibular neuritis, herpes zoster, Mnire's,Labyrinthine concussion, jennifer syndrome, acoustic neuroma, otitis media, migraine, brainstem ischemia, CVA, Chiari malformation, MS, cardiac ischemia, aortic dissection, pulmonary embolism, pneumonia, pneumothorax, musculoskeletal, infections, pericarditis, myocarditis, esophageal rupture, gastrointestinal, as well as others were entertained. Physical examination: As above. ER treatment provided: Toradol, Reglan, Benadryl, IV fluids On reassessment the patient felt better. Diagnostic interpretation by me: The electrocardiogram was negative for pathologic change. Normal sinus, normal intervals, no acute ST-T wave changes. Impression sinus rhythm interpreted by myself The labs revealed leukocytosis most likely from the prednisone. Elevated d- dimer with a negative CTA Imaging studies: Chest x-ray with no acute consolidation or pneumothorax per my interpretation CT the sinuses and CTA of the chest was read by stat radiology and reviewed Exam and history seem consistent with sinus headache with sinusitis and chest pain most likely from coughing. Patient was advised to follow-up with ENT for her recurrent sinus infections. She denies continue her steroids and antibiotics as prescribed from prior ER visit from the other day. She is advised take a decongestant, rest and stay well-hydrated. She is advised to return to the ER immediately for chest pain, difficulty breathing, severe headache, worsening signs or symptoms or as needed. Patient had no signs of meningitis on exam. She is well-appearing.By the evaluation outlined above emergent etiologies such as cardiac ischemia, aortic dissection, pulmonary embolism, pneumonia, pneumothorax, infections, pericarditis, myocarditis, gastrointestinal, as well as others were deemed relatively unlikely. The pt informed about the findings as listed above. All questions were answered and pleased with the treatment. Return instructions were outlined and the patient was discharged in stable condition. Referral: The patient was referred back to primary care physician and ENT for follow-up in 2 to 3 days for a recheck of the current condition. Case reviewed with my attending. Medical Decision As above Impression Primary Impression: Maxillary sinusitis Additional Impressions: Sinus headache Chest pain Departure Information Dispostion Home / Self-Care Condition GOOD Referrals Estevan Carter M.D. ([facility]) (PCP) Patient Instructions My [facility] Additional Instructions Continue medications as prescribed from your prior ER visit. Acetaminophen(Tylenol) may be used for fever or pain. Use 1000mg every six hours as needed. Avoid using more than 3000mg in a 24 hour period. Afrin nasal spray: 2-3 sprays to each nostril twice daily as needed for congestion. Do not use for more than 3-4 days because it can lead to worsening rebound congestion. Pseudoephedrine(Sudaphed): 30-60mg every 6 hours as needed for nasal congestion. Do not take this with other stimulant products or supplements. Albuterol Inhaler: Take 2 puffs four times daily for seven days, then as needed. Rest and drink plenty of fluids. Controlling your fever with Tylenol and Ibuprofen as above will make you feel better. Wash your hands after nose blowing, sneezing, or coughing. Most germs are spread through contact, therefore improper hygiene may result in your close contacts and loved ones becoming ill just like you. Continue current medications. Return to the ER for severe headache, neck stiffness, chest pain, difficulty breathing, fevers, vomiting, worsening of your condition, or as needed. Follow up with your primary physician and ENT this week for a recheck of your current condition. Problem Qualifiers Primary Impression: Maxillary sinusitis Chronicity: acute Recurrence: recurrent Qualified Codes: J01.01 - Acute recurrent maxillary sinusitis
[2017-01-28] MEDS ORDERED: DiphenhydrAMINE HCL 50 MG/ML VIAL IV STA (01:20)
[2017-01-28] MEDS ORDERED: PROCHLORPERAZINE 5 MG/ML 2 ML VIAL IV STA (01:20)
[2017-01-28 02:38] VITALS: BP 125/79; PULSE 67; O2SAT 98
[2017-01-28] MEDS ORDERED: ALBUTEROL HFA 8 GM INHALER INH ONE (02:46)
--- NOTE | 2017-01-28 06:41 | DIAGNOSTIC IMAGING REPORT ---
CHEST ONE VIEW PORTABLE CLINICAL HISTORY: Chest pain. COMPARISON STUDY: Chest radiograph January 08, 2016. FINDINGS: Lung volumes are normal. There is no consolidation. There is no pneumothorax or pleural effusion. Cardiomediastinal silhouette is within normal limits. There is no evidence of pulmonary edema. IMPRESSION: No acute cardiopulmonary findings. Electronically signed by: Osvaldo Bledsoe M.D. 01/28/2017 6:38 AM Dictated Date/Time: 01/28/2017 6:38 AM
--- NOTE | 2017-01-28 06:53 | DIAGNOSTIC IMAGING REPORT ---
CHEST CTA for PULMONARY ARTERIES CT DOSE: 583.97 mGy.cm HISTORY: Chest pain dyspnea TECHNIQUE: Multiaxial CT images of the chest were performed following the intravenous administration of contrast to evaluate the pulmonary arteries. Maximal intensity projection images were also obtained. COMPARISON STUDY: None. FINDINGS: There is a normal caliber thoracic aorta with no evidence for dissection. There is no evidence for pulmonary embolus. No pleural effusions. No pneumothorax. The liver and spleen are unremarkable. No mediastinal or hilar lymphadenopathy. The central airways are patent. The lungs are clear. IMPRESSION: 1. No evidence for pulmonary embolus. . 2. Moderate prominence of the central pulmonary arterial vasculature. Electronically signed by: Ankush Pulido M.D. 01/28/2017 6:51 AM Dictated Date/Time: 01/28/2017 6:49 AM
--- NOTE | 2017-01-28 07:00 | DIAGNOSTIC IMAGING REPORT ---
SINUS CT WITHOUT CONTRAST CLINICAL HISTORY: Recurrent sinus infection. COMPARISON STUDY: Head CT January 25, 2017. Technique: Helical axial images of the sinuses were obtained without IV contrast. Coronal reformats were viewed. CT DOSE: 695.87 mGy.cm FINDINGS: Visualized portions of the intracranial contents are unremarkable on this unenhanced exam. Orbits are unremarkable. There is a small air-fluid level within the left maxillary sinus which is similar to head CT of January 25, 2017. There is mild rightward deviation of the nasal septum. There are lorin bullous of the bilateral middle turbinates. Ostiomeatal complexes are patent. There is moderate mucosal thickening within the sinuses. IMPRESSION: 1. Small left maxillary sinus air-fluid level, similar to CT of January 25, 2017. 2. Mild mucosal thickening within the remainder of the sinuses. Patent major drainage pathways. Electronically signed by: Osvaldo Bledsoe M.D. 01/28/2017 6:58 AM Dictated Date/Time: 01/28/2017 6:56 AM
== END 2017-01-28 02:38 | disposition home or self-care (01) ==
LOC: C.EDB 22:34
DX: J32.0 Chronic maxillary sinusitis (principal); R51 Headache; R07.9 Chest pain, unspecified; F31.9 Bipolar disorder, unspecified; F32.9 Major depressive disorder, single episode, unspecified; E03.9 Hypothyroidism, unspecified; N80.9 Endometriosis, unspecified; R45.1 Restlessness and agitation; G47.30 Sleep apnea, unspecified; Z90.710 Acquired absence of both cervix and uterus; Z98.84 Bariatric surgery status; Z98.890 Other specified postprocedural states; Z79.899 Other long term (current) drug therapy; Z88.8 Allergy status to other drugs, medicaments and biological substances; Z91.018 Allergy to other foods; Z91.09 Other allergy status, other than to drugs and biological substances; Z83.3 Family history of diabetes mellitus; Z82.49 Family history of ischemic heart disease and other diseases of the circulatory system

== ENCOUNTER 2017-03-17 15:33 | Emergency (ER) | payer BC ==
[~2017-03-17] VITALS: Ht 177.8 cm; Wt 110.9 kg
[~2017-03-17 15:33] MED LIST changes: -AMOX875T PO; -FLUC150T PO; -MECL1TAB42 PO; -METH4PAK PO
[2017-03-17 15:37] VITALS: TEMP 36.9; Ht 177.8 cm; Wt 110.9 kg
[2017-03-17] MEDS ORDERED: SODIUM CHLORIDE 0.9% 1000ML 1,000 ML IV STA (15:47)
[2017-03-17] MEDS ORDERED: METOCLOPRAMIDE HCL INJ 5 MG/ML 2 ML VIAL IV STA (15:47)
[2017-03-17] MEDS ORDERED: MoRPHine SULFATE 4 MG/ML 1 ML CARP\\VIAL IV STA (15:47)
[2017-03-17] MEDS ORDERED: DiphenhydrAMINE HCL 50 MG/ML VIAL IV STA ×2 (15:47→17:32)
--- NOTE | 2017-03-17 16:11 | EMERGENCY ROOM VISIT NOTE ---
History Report prepared by Rock: Lamar uMniz Under the Supervision of: Dr. Michael Og M.D. First contact with patient: 15:41 Chief Complaint: HEADACHE Stated Complaint: MIGRIANE FOR 4 DAYS, NAUSEA History of Present Illness The patient is a 36 year old female who presents to the Emergency Room with complaints of persistent headache starting 3 days ago. She currently rates her discomfort as a 7/10 in severity. She has a history of migraines for the past 15 years and is on daily medications to prevent them. She follows with neurology , but was sent to the ED today because her regular neurology doctor was out of town. She reports she has not been treated for her migraines in hospital before. Her headache is present behind her eyes and on the top of her head which is typical for her migraines. She reports nausea. She denies any recent trauma. Pt denies LOC, fevers, chills, visual changes, neck pain/stiffness, thunder clap or sudden onset of headache, carbon monoxide exposure, ear problems /hearing loss, sinus congestion/recent infection, chest pain, breathing difficulties, vomiting, abdominal pain, urinary symptoms, numbness, weakness, lymphadenopathy, rash, or other complaints Source of History: patient Onset: 3 days ago Position: head Symptom Intensity: 7/10 Quality: ache Timing: other (persistent) Associated Symptoms: + nausea Review of Systems See HPI for pertinent positives and negatives. A total of ten systems were reviewed and were otherwise negative. Past Medical & Surgical Medical Problems: (1) Allergic rhinitis (2) Bipolar disorder (3) Depression (4) Endometriosis (5) Hypothyroidism (6) Migraine (7) Obesity (BMI 30-39.9) (8) Restless leg syndrome (9) Sleep apnea (10) Stricture of ureter Surgical Problems: (1) H/O gastric bypass (2) History of appendectomy (3) History of bladder surgery (4) History of hysterectomy (5) History of tonsillectomy and adenoidectomy Family History Diabetes mellitus Heart disease Hypertension Social History Smoking Status: Never Smoker Alcohol Use: none Drug Use: none Marital Status: single Housing Status: lives with family Occupation Status: employed Current/Historical Medications Scheduled Biotin (Biotin 5000), 5 MG PO DAILY Bupropion (Wellbutrin Sr), 100 MG PO BID Calcium Carbonate-Vitamin D W/ (Caltrate 600 Plus), 2 TAB PO BID Frovatriptan Succinate (Frova), 2.5 MG PO PRN/UD Lamotrigine (Lamictal), 200 MG PO QAM Lamotrigine (Lamictal), 100 MG PO HS Levothyroxine Sodium (Synthroid), 75 MCG PO DAILY [place] Carbonate ([place]shire Carbonate), 100 MG PO QAM [place] Carbonate ([place] Carbonate), 300 MG PO HS Magnesium Oxide (Mag-Ox), 400 MG PO DAILY Meloxicam (Mobic), 15 MG PO DAILY Omeprazole (Prilosec), 40 MG PO DAILY Pramipexole Dihydrochloride (Mirapex), 0.5 MG PO QPM Propranolol Hcl (Inderal), 20 MG PO BID Ranitidine (Zantac), 150 MG PO QAM Risperidone (Risperdal), 1 MG PO QPM Tizanidine (Zanaflex), 4 MG PO HS Scheduled PRN Alprazolam (Alprazolam), 0.5 MG PO BID PRN for Anxiety/Insomnia Diphenoxylate/Atropine (Lomotil), 1 TAB PO Q6 PRN for Diarrhea Allergies Coded Allergies: Metoclopramide (Verified Allergy, Severe, SOB, hypertention, anxiety, chest pain, 03/17/17) Quinolones (Verified Allergy, Mild, LVQ = HIVES, MELVIN. CIPRO, 01/25/17) Butorphanol (Verified Allergy, Unknown, _, 01/25/17) Iodine (Verified Allergy, Unknown, SEAFOOD = SWELLING, HIVES, 01/25/17) Levofloxacin (Verified Allergy, Unknown, HIVES, 01/25/17) TOLERATES CIPRO PER CONVERSATION WITH DR. HILTON Shellfish (Verified Allergy, Unknown, HIVES, 01/25/17) NSAIDs (Verified Adverse Reaction, Unknown, GI SYMPTOMS, 01/28/17) UNABLE TO TAKE ORAL NSAIDS DUE TO GASTRIC BYPASS SURGERY Physical Exam Vital Signs Date Time Temp Pulse Resp B/P Pulse Ox O2 Delivery O2 Flow Rate FiO2 03/17/17 20:45 59 20 94/73 95 03/17/17 20:08 65 20 99/60 99 Room Air 03/17/17 18:00 68 18 109/72 97 Room Air 03/17/17 17:47 99 Room Air 03/17/17 17:42 55 03/17/17 17:05 58 20 104/66 93 Room Air 03/17/17 16:51 67 20 217/150 100 Room Air 03/17/17 16:39 70 22 119/75 100 Room Air 03/17/17 15:37 36.9 48 18 118/79 99 Room Air Physical Exam GENERAL: Awake, alert, well appearing, no distress HENT: Normocephalic, atraumatic. TM's normal. Oropharynx unremarkable. EYES: PERRL. EOMI. Normal conjunctiva. Sclera non-icteric. NECK: Supple. No nuchal rigidity. FROM. No JVD or bruit. RESPIRATORY: CTA CARDIAC: RRR. No murmur. ABDOMEN: Soft, non distended. No tenderness to palpation. No rebound or guarding. No masses. RECTAL: Deferred. MUSCULOSKELETAL: Unremarkable. No edema. No discoloration. Gross motor strength symmetric. NEURO: Cranial nerves 2-12 grossly intact. Normal sensorium. No sensory or motor deficits noted. Speech normal. No pronator drift. SKIN: No rash or jaundice noted. LYMPH: No adenopathy. Medical Decision & Procedures ER Provider Diagnostic Interpretation: X-ray: Per my interpretation, radiologist review. CHEST ONE VIEW PORTABLE CLINICAL HISTORY: CHEST PAIN dyspnea COMPARISON STUDY: 01/27/2017 FINDINGS: The bones soft tissues and hemidiaphragms are normal. The cardiomediastinal silhouette is normal. The lungs are clear. The pulmonary vasculature is normal. IMPRESSION: Negative chest. Electronically signed by: Ankush Pulido M.D. 03/17/2017 6:03 PM Dictated Date/Time: 03/17/2017 6:03 PM Laboratory Results 03/17/17 17:44 Red Blood Count 4.50, Mean Corpuscular Volume 92.7, Mean Corpuscular Hemoglobin 29.1, Mean Corpuscular Hemoglobin Concent 31.4, Mean Platelet Volume 9.9, Neutrophils (%) (Auto) 63.9, Lymphocytes (%) (Auto) 21.8, Monocytes (%) (Auto) 6.5, Eosinophils (%) (Auto) 7.2, Basophils (%) (Auto) 0.4, Neutrophils # (Auto) 5.18, Lymphocytes # (Auto) 1.77, Monocytes # (Auto) 0.53, Eosinophils # (Auto) 0.58, Basophils # (Auto) 0.03 03/17/17 17:44 Test 03/17/17 17:44 03/17/17 19:28 03/17/17 19:46 White Blood Count 8.11 K/uL (4.8-10.8) Red Blood Count 4.50 M/uL (4.2-5.4) Hemoglobin 13.1 g/dL (12.0-16.0) Hematocrit 41.7 % (37-47) Mean Corpuscular Volume 92.7 fL (80-100) Mean Corpuscular Hemoglobin 29.1 pg (25-34) Mean Corpuscular Hemoglobin Concent 31.4 g/dl (32-36) Platelet Count 291 K/uL (130-400) Mean Platelet Volume 9.9 fL (7.4-10.4) Neutrophils (%) (Auto) 63.9 % Lymphocytes (%) (Auto) 21.8 % Monocytes (%) (Auto) 6.5 % Eosinophils (%) (Auto) 7.2 % Basophils (%) (Auto) 0.4 % Neutrophils # (Auto) 5.18 K/uL (1.4-6.5) Lymphocytes # (Auto) 1.77 K/uL (1.2-3.4) Monocytes # (Auto) 0.53 K/uL (0.11-0.59) Eosinophils # (Auto) 0.58 K/uL (0-0.5) Basophils # (Auto) 0.03 K/uL (0-0.2) RDW Standard Deviation 42.9 fL (36.4-46.3) RDW Coefficient of Variation 12.7 % (11.5-14.5) Immature Granulocyte % (Auto) 0.2 % Immature Granulocyte # (Auto) 0.02 K/uL (0.00-0.02) Prothrombin Time 10.4 SECONDS (9.0-12.0) Prothromb Time International Ratio 1.0 (0.9-1.1) Activated Partial Thromboplast Time 28.5 SECONDS (21.0-31.0) Partial Thromboplastin Ratio 1.1 Anion Gap 6.0 mmol/L (3-11) Est Creatinine Clear Calc Drug Dose 110.4 ml/min Estimated GFR () 89.3 Estimated GFR (Non- 77.1 BUN/Creatinine Ratio 14.9 (10-20) Calcium Level 9.3 mg/dl (8.5-10.1) Total Bilirubin 0.4 mg/dl (0.2-1) Direct Bilirubin 0.1 mg/dl (0-0.2) Aspartate Amino Transf (AST/SGOT) 144 U/L (15-37) Alanine Aminotransferase (ALT/SGPT) 71 U/L (12-78) Alkaline Phosphatase 133 U/L (45-117) Total Creatine Kinase 45 U/L (26-192) Creatine Kinase MB < 0.5 ng/ml (0.5-3.6) Creatine Kinase MB Ratio (0-3.0) Total Protein 6.7 gm/dl (6.4-8.2) Albumin 3.6 gm/dl (3.4-5.0) Lipase 106 U/L (73-393) Bedside Troponin I 0.000 ng/ml (0-0.045) Troponin I < 0.015 ng/ml (0-0.045) Laboratory results reviewed by me Medications Administered Medications (Trade) Dose Ordered Sig/Gely Route Start Time Stop Time Status Last Admin Dose Admin Sodium Chloride (Nss 1000ml) 1,000 ml @ 999 mls/hr Q1H1M STAT IV 03/17/17 15:47 03/17/17 16:47 DC 03/17/17 16:13 999 MLS/HR Diphenhydramine HCl (Benadryl Inj) 25 mg NOW STAT IV 03/17/17 15:47 03/17/17 15:53 DC 03/17/17 16:13 25 MG Morphine Sulfate (MoRPHine SULFATE INJ) 4 mg NOW STAT IV 03/17/17 15:47 03/17/17 15:53 DC 03/17/17 16:12 4 MG Metoclopramide HCl (Reglan Inj) 10 mg NOW STAT IV 03/17/17 15:47 03/17/17 15:53 DC 03/17/17 16:14 10 MG Ondansetron HCl (Zofran 8mg Iv) 8 mg NOW STAT IV 03/17/17 16:41 03/17/17 16:42 DC 03/17/17 16:46 8 MG Hydromorphone HCl (Dilaudid Inj) 0.5 mg NOW STAT IV 5/25/17 16:41 03/17/17 16:42 DC 03/17/17 16:47 0.5 MG Al Hydroxide/Mg Hydroxide (Maalox Susp) 30 ml NOW STAT PO 03/17/17 16:58 03/17/17 17:00 DC 03/17/17 17:07 30 ML Hydromorphone HCl (Dilaudid Inj) 0.5 mg NOW STAT IV 03/17/17 20:24 03/17/17 20:25 DC 03/17/17 20:30 0.5 MG ECG Indication: SOB/dyspnea Rate (beats per minute): 61 Rhythm: normal sinus Findings: Q waves (Inferior), no acute ischemic change, no ectopy Comparison ECG Date: 27-Jan-2017 Change: no significant change Change: Repeat EKG: sinus bradycardia, 54, inferior Q wave, no significant change compared to prior. ED Course 1546: The patient was evaluated in room A10. A complete history and physical exam was performed. 1547: Reglan Inj 10 mg IV, Morphine Sulfate 4 mg IV, Benadryl Inj 25 mg IV, NSS 1000 ml @ 999 mls/hr IV. 164: Dilaudid Inj 0.5 mg IV, Zofran 8 mg IV. 165: I reevaluated the patient. She is having some SOB after medications were administered. An EKG was obtained. 1657: Maalox Susp 30 ml PO. 173: I reevaluated the patient. She reports an episode of chest heaviness which has resolved. 2021: I reevaluated the patient. Her headache is coming back. More pain medication will be ordered. I discussed the results and treatment plan with her. She verbalized understanding and agreement. She will be discharged home. 2023: Dilaudid Inj 0.5 mg IV. Medical Decision Triage Nursing notes reviewed. The patient's presentation and history were concerning for headache with a history of migraines. Medication Reconciliation: I attest that I have personally reviewed the patient' s current medication list Etiologies such as migraine, tumor, headache, sinus thrombosis, temporal arteritis, sinusitis, CVA, ICH, SAH, infection, as well as others were entertained. The patient is a long history of migraines. She is directed here by her neurologist. Physical examination revealed no focal findings. Clinically the patient looks well. She was treated with IV normal saline, IV Reglan, IV Benadryl, and IV morphine. On reassessment the patient noted some feelings of shortness of breath and chest tightness. This was after she received the IV Reglan. She has limitations on what she can receive secondary to her other medications. Phenothiazines with her lithium are not recommended. The patient had some hypertension with this. She also had an appropriate-sized cuff on her arm. Her symptoms resolved. An ECG was performed and did not reveal any acute findings. The patient was observed. Her headache was feeling better although she still had pain. The patient was given Zofran and Dilaudid. She was feeling better with this combination. The patient then had another episode of some shortness of breath/chest tightness. Blood work was obtained. This was unremarkable. The patient was observed. Repeat troponin was performed and was 0. Repeat ECG was unchanged. I believe that she had a side effect to the Reglan and was advised to avoid this in the future. She did note that her pain was somewhat coming back given the time frame of the additional workup done so she was given a second dose of 0.5 mg of Dilaudid for a total of 1 mg. Conservative management was discussed and she was instructed to follow-up with her primary. The patient felt very comfortable with this plan. If she worsens in any way she will return. By the evaluation outlined above other emergent etiologies such as those listed in the differential, as well as others, were deemed relatively unlikely. The patient was informed about the findings as listed above. All questions were answered and she was pleased with the treatment. Return instructions were outlined and the patient was discharged in stable condition. The patient was referred to her neurologist for follow-up next week for a recheck of the current condition. The chart was completed utilizing [employer] Speech voice recognition software. Grammatical errors, random word insertions, pronoun errors, and incomplete sentences are an occasional consequence of this system due to software limitations, ambient noise, and hardware issues. Any formal questions or concerns about the content, text, or information contained within the body of this dictation should be directly addressed to the physician for clarification. Impression Primary Impression: Headache Additional Impression: Adverse reaction to drug Scribe Attestation The scribe's documentation has been prepared under my direction and personally reviewed by me in its entirety. I confirm that the note above accurately reflects all work, treatment, procedures, and medical decision making performed by me. Departure Information Dispostion Home / Self-Care Referrals Estevan Carter M.D.NISA) (PCP) Forms HOME CARE DOCUMENTATION FORM, IMPORTANT VISIT INFORMATION, Work Instructions Patient Instructions My [facility] Additional Instructions HEADACHE INSTRUCTIONS: DO NOT drive, drink alcohol, operate machinery, or perform dangerous activities today. You were given medications in the ER that can affect your ability to safely function or operate a vehicle. Rest today in a quiet, peaceful, dark environment and get a full 8-10 hrs of sleep tonight. Avoid loud noises, smoke/smoking, alcohol, bright lights, stress, or physical exertion today to minimize the chance the headache may return. Continue current medications. Ibuprofen(Motrin, Advil) may be used for fever or pain. Use 600mg every six hours as needed. Take with food. Avoid using more than 2400mg in a 24 hour period. Do not use 2400mg per day for more than three consecutive days without physician direction. Prolonged inappropriate use can lead to stomach upset or ulcers. (AND/OR) Acetaminophen(Tylenol) may be used for fever or pain. Use 1000mg every six hours as needed. Avoid using more than 4000mg in a 24 hour period. Return to the ER for passing out, worsening headache, vision problems, neck stiffness/pain, fevers, vomiting, worsening of your condition, or as needed. Follow up with your primary physician in 2-3 days for a recheck of your current condition. Problem Qualifiers
[2017-03-17] MEDS ORDERED: ONDANSETRON 8 MG/54 ML D5W IV STA (16:41)
[2017-03-17] MEDS ORDERED: HYDROmorphone INJ 0.5 MG/0.5 ML SYR IV STA ×2 (16:41→20:24)
[2017-03-17] MEDS ORDERED: ALUMINUM/MAGNESIUM SUSP 30 ML UDC PO STA (16:58)
[2017-03-17] MEDS ORDERED: LORAZEPAM 2 MG/ML 1 ML VIAL IV STA (17:32)
[2017-03-17 17:47] VITALS: O2SAT 99
[2017-03-17 17:56] LABS: BASO % 0.4 %; BASO ABS # 0.03 K/uL (0-0.2); COMPLETE YES; EOS % 7.2 %; HEMATOCRIT 41.7 % (37-47); IG% 0.2 %; LYMPH % 21.8 %; LYMPH ABS # 1.77 K/uL (1.2-3.4); MEAN CELL VOLUME 92.7 fL (80-100); MEAN CORPUSCULAR HEMOGLOBIN 29.1 pg (25-34); MEAN CORPUSCULAR HGB CONC 31.4 g/dl (32-36); MEAN PLATELET VOLUME 9.9 fL (7.4-10.4); MONO % 6.5 %; NEUT % 63.9 %; PLATELET COUNT 291 K/uL (130-400); WHITE BLOOD COUNT 8.11 K/uL (4.8-10.8)
--- NOTE | 2017-03-17 18:04 | DIAGNOSTIC IMAGING REPORT ---
CHEST ONE VIEW PORTABLE CLINICAL HISTORY: CHEST PAIN dyspnea COMPARISON STUDY: 01/27/2017 FINDINGS: The bones soft tissues and hemidiaphragms are normal. The cardiomediastinal silhouette is normal. The lungs are clear. The pulmonary vasculature is normal. IMPRESSION: Negative chest. Electronically signed by: Ankush Pulido M.D. 03/17/2017 6:03 PM Dictated Date/Time: 03/17/2017 6:03 PM
[2017-03-17 18:13] LABS: PARTIAL THROMBOPLASTIN RATIO 1.1; PROTHROMBIN TIME (PATIENT) 10.4 SECONDS (9.0-12.0)
[2017-03-17 18:18] LABS: ALT/SGPT 71 U/L (12-78); AST/SGOT 144 U/L (15-37); BLOOD UREA NITROGEN 14 mg/dl (7-18); BUN/CREATININE RATIO 14.9 (10-20); CALCIUM 9.3 mg/dl (8.5-10.1); CARBON DIOXIDE 26 mmol/L (21-32); CHLORIDE 113 mmol/L (98-107); CREATININE 0.95 mg/dl (0.60-1.20); GLUCOSE 93 mg/dl (70-99); POTASSIUM 3.9 mmol/L (3.5-5.1); SODIUM 145 mmol/L (136-145)
[2017-03-17 18:23] LABS: ALKALINE PHOSPHATASE 133 U/L (45-117)
[2017-03-17] MEDS ORDERED: ZNTT/150 PO (18:42)
[2017-03-17 20:45] VITALS: BP 94/73; PULSE 59; O2SAT 95
== END 2017-03-17 20:47 | disposition home or self-care (01) ==
LOC: C.EDB 15:35 → C.EDA 20:47
DX: R51 Headache (principal); T88.7XXA Unspecified adverse effect of drug or medicament, initial encounter; X58.XXXA Exposure to other specified factors, initial encounter; F31.9 Bipolar disorder, unspecified; F33.41 Major depressive disorder, recurrent, in partial remission; E03.9 Hypothyroidism, unspecified; E66.9 Obesity, unspecified; G47.30 Sleep apnea, unspecified; Z83.3 Family history of diabetes mellitus; Z82.49 Family history of ischemic heart disease and other diseases of the circulatory system

== ENCOUNTER 2017-03-22 20:36 | Emergency (ER) | payer BC ==
[~2017-03-22] VITALS: Ht 177.8 cm; Wt 112.0 kg
[~2017-03-22 20:36] MED LIST changes: -LCTXP PO; +ZNTT/150 PO
[2017-03-22 20:46] VITALS: TEMP 36.8; Ht 177.8 cm; Wt 112.0 kg
[2017-03-22] MEDS ORDERED: ONDANSETRON INJ 2 MG/ML 2 ML VIAL IV STA (21:36)
[2017-03-22] MEDS ORDERED: HYDROmorphone INJ 1 MG/ML SYR IV STA ×2 (21:36→22:25)
[2017-03-22] MEDS ORDERED: PRED20TA PO (22:25)
[2017-03-22] MEDS ORDERED: DiphenhydrAMINE HCL 50 MG/ML VIAL IV STA (22:25)
--- NOTE | 2017-03-22 23:08 | EMERGENCY ROOM VISIT NOTE ---
History First contact with patient: 21:03 Chief Complaint: HEADACHE Stated Complaint: MIGRAINE X9 DAYS, NAUSEA History of Present Illness The patient is a 36 year old female who presents to the Emergency Room with complaints of a migraine headache 9 days. The patient was here last week for the same headache and was treated with IV medications which she states did help her headache. The patient reports that her headache returned after discharge home. She was seen by her primary care provider and had an injection of Toradol. She has been taking Excedrin and Tylenol without relief. The patient takes magnesium, riboflavin and propranolol daily for her migraines but has no other medications prescribed here. She states she has used Imitrex in the past but it did not work well for her. She states that she sees [facility] neurology about her migraines. She recently started a steroid prescription which was called in by Dr. Britton. She states she does have a history of migraines and this is similar to previous. The headache is located behind her eyes and in the top of her head. She reports nausea but no vomiting. She reports sensitivity to light. She rates her discomfort an 8/10. This is not the worst headache of her life. She denies any numbness, weakness, neck pain/stiffness or fevers. Review of Systems A complete 10 point review of systems was reviewed with the patient with pertinent positives and negatives as per history of present illness. All else were negative. Past Medical/Surgical History Medical Problems: (1) Allergic rhinitis (2) Bipolar disorder (3) Depression (4) Endometriosis (5) Hypothyroidism (6) Migraine (7) Obesity (BMI 30-39.9) (8) Restless leg syndrome (9) Sleep apnea (10) Stricture of ureter Surgical Problems: (1) H/O gastric bypass (2) History of appendectomy (3) History of bladder surgery (4) History of hysterectomy (5) History of tonsillectomy and adenoidectomy Family History Diabetes mellitus Heart disease Hypertension Social History Smoking Status: Never Smoker Alcohol Use: none Drug Use: none Marital Status: single Housing Status: lives with family Occupation Status: employed Current/Historical Medications Scheduled Biotin (Biotin 5000), 5 MG PO DAILY Bupropion (Wellbutrin Sr), 100 MG PO BID Calcium Carbonate-Vitamin D W/ (Caltrate 600 Plus), 2 TAB PO BID Frovatriptan Succinate (Frova), 2.5 MG PO PRN/UD Lamotrigine (Lamictal), 200 MG PO QAM Lamotrigine (Lamictal), 100 MG PO HS Levothyroxine Sodium (Synthroid), 75 MCG PO DAILY [place] Carbonate ([place] Carbonate), 100 MG PO QAM [place] Carbonate ([place] Carbonate), 300 MG PO HS Magnesium Oxide (Mag-Ox), 400 MG PO DAILY Meloxicam (Mobic), 15 MG PO DAILY Omeprazole (Prilosec), 40 MG PO DAILY Pramipexole Dihydrochloride (Mirapex), 0.5 MG PO QPM Prednisone (Prednisone), 20 MG PO DIRECTED Propranolol Hcl (Inderal), 20 MG PO BID Ranitidine (Zantac), 150 MG PO QAM Risperidone (Risperdal), 1 MG PO QPM Tizanidine (Zanaflex), 4 MG PO HS Scheduled PRN Alprazolam (Alprazolam), 0.5 MG PO BID PRN for Anxiety/Insomnia Diphenoxylate/Atropine (Lomotil), 1 TAB PO Q6 PRN for Diarrhea Allergies Coded Allergies: Metoclopramide (Verified Allergy, Severe, SOB, hypertention, anxiety, chest pain, 03/22/17) Quinolones (Verified Allergy, Mild, LVQ = HIVES, MELVIN. CIPRO, 03/22/17) Butorphanol (Verified Allergy, Unknown, _, 03/22/17) Iodine (Verified Allergy, Unknown, SEAFOOD = SWELLING, HIVES, 03/22/17) Levofloxacin (Verified Allergy, Unknown, HIVES, 03/22/17) TOLERATES CIPRO PER CONVERSATION WITH DR. HILTON Shellfish (Verified Allergy, Unknown, HIVES, 03/22/17) NSAIDs (Verified Adverse Reaction, Unknown, GI SYMPTOMS, 03/22/17) UNABLE TO TAKE ORAL NSAIDS DUE TO GASTRIC BYPASS SURGERY Physical Exam Vital Signs Date Time Temp Pulse Resp B/P (MAP) Pulse Ox O2 Delivery O2 Flow Rate FiO2 03/22/17 23:18 65 18 119/68 96 03/22/17 22:33 61 18 99/58 95 Room Air 03/22/17 20:46 36.8 63 18 136/87 99 Room Air Physical Exam VITALS: Vitals are noted on the nurse's note and reviewed by myself. Vital signs stable. GENERAL: This is a 36-year-old female, in no acute distress, nondiaphoretic, well-developed well-nourished. HEAD: Normocephalic atraumatic. EARS: External auditory canals clear, tympanic membranes pearly negron without erythema or effusion bilaterally. EYES: Pupils equal round and reactive to light and accommodation. Conjunctivae without injection, sclerae without icterus. Extraocular movements intact. NOSE: Patent, turbinates without inflammation or discharge. No sinus tenderness. MOUTH: Mucous membranes moist. Tonsils are not enlarged. Pharynx without erythema or exudate. NECK: Supple without nuchal rigidity. No lymphadenopathy. No meningismus. HEART: Regular rate and rhythm without murmurs gallops or rubs. LUNGS: Clear to auscultation bilaterally without wheezes, rales or rhonchi. MUSCULOSKELETAL: Full range of motion throughout. Strength 5/5 in all extremities. NEURO: Patient was alert and oriented to person place and time. Normal sensation to light and sharp touch. Deep tendon reflexes 2+ throughout. No focal neurological deficits. Medical Decision & Procedures Medications Administered Medications (Trade) Dose Ordered Sig/Gely Route Start Time Stop Time Status Last Admin Dose Admin Hydromorphone HCl (Dilaudid Inj) 1 mg NOW STAT IV 03/22/17 21:36 03/22/17 21:41 DC 03/22/17 21:58 1 MG Ondansetron HCl (Zofran Inj) 4 mg NOW STAT IV 03/22/17 21:36 03/22/17 21:41 DC 03/22/17 21:57 4 MG Hydromorphone HCl (Dilaudid Inj) 1 mg NOW STAT IV 03/22/17 22:25 03/22/17 22:26 DC 03/22/17 22:32 1 MG Diphenhydramine HCl (Benadryl Inj) 25 mg NOW STAT IV 03/22/17 22:25 03/22/17 22:26 DC 03/22/17 22:32 25 MG Acetaminophen/ Hydrocodone Bitart ([place] 5/325mg Home Pack) 1 homepack UD ONCE PO 03/22/17 23:15 03/22/17 23:16 DC 03/22/17 23:17 1 HOMEPACK Ondansetron HCl (ZOFRAN ODT 4MG Home Pack) 1 homepack UD ONCE PO 03/22/17 23:15 03/22/17 23:16 DC 03/22/17 23:17 1 HOMEPACK ED Course The patient was evaluated as above. IV access was obtained. Patient was medicated with 1 mg Dilaudid and 4 mg Zofran IV. Patient was reevaluated and reported some relief. She was given an additional 1 mg Dilaudid. Patient was reevaluated and reported she felt much better. She was ready for discharge home. Discharge instructions were reviewed with the patient. The patient verbalized understanding of my assessment and treatment plan and was discharged home in good condition. Medical Decision The differential diagnosis includes acute intracranial bleed, meningitis, encephalitis, mass or mass effect, sinusitis, infection, tumor, headache, temporal arteritis and carbon monoxide exposure, and migraine. The patient is a 36-year-old female who presents today complaining of a persistent migraine. She states it is consistent with her previous migraines. She is nontoxic in appearance. Neurological exam is normal. She was offered further workup but declined. The patient was given 2 doses of IV Dilaudid. She felt much better. She will follow-up with her neurologist. She will return for any worsening or new/concerning symptoms. Based on the patient's presentation and work up, I feel the patient is stable for outpatient treatment. The patient was educated to return to the emergency department for any worsening of their current condition or new/concerning symptoms. She will follow up with her neurologist for further evaluation. Impression Primary Impression: Migraine Departure Information Dispostion Home / Self-Care Condition GOOD Referrals Estevan Carter M.D.([facility]) (PCP) Patient Instructions My [facility] Additional Instructions You have been treated in the Emergency Department for a Headache. You have received pain medicine in the emergency department which impairs your ability to operate a vehicle. It is illegal for you to drive after receiving these medicines. You have been given [place] to be used for pain control. This is a narcotic medication. You cannot drive or consume alcohol while on this medicine. This medicine should only be used for pain that cannot be controlled with over-the- counter pain medicines. You have been given Zofran to be used for any nausea or vomiting. Take as prescribed. For pain control, you can use the following [id number] medicines (if >12 yo): - Regular strength (325mg/tab) Tylenol (acetaminophen) 2 tabs every 4-6 hours as needed. Do not exceed 12 tablets in a 24 hour period. Avoid taking more than 4 grams (4000 mg) of Tylenol per day. This includes any other sources of acetaminophen you may take on a regular basis. - Regular strength (200 mg/tab) Advil (ibuprofen) 1-2 tabs every 4-6 hours as needed. Do not exceed a dose of 3200 mg per day. You should relax in a quiet, dark place for the rest of the day. Avoid any possible triggers including: cigarette smoke, caffeine, nicotine, chocolate, wine, beer, loud noises or music, or bright lights. You should schedule a follow-up appointment in 2-3 days with your Primary Care Provider or established Neurologist for further evaluation and treatment of your Headache. Return to the Emergency Department if your current symptoms worsen despite treatment course outlined above, or if you develop any of the following symptoms : intractable pain despite aforementioned treatment course, visual disturbances , loss of vision, unilateral weakness or facial drooping, slurring of speech, loss of coordination, or loss of consciousness.
[2017-03-22] MEDS ORDERED: NORCO 5/325MG HOME PACK PO ONE (23:15)
[2017-03-22] MEDS ORDERED: ONDANSETRON HOME PACK 4MG OD TAB PO ONE (23:15)
[2017-03-22 23:18] VITALS: BP 119/68; PULSE 65; O2SAT 96
== END 2017-03-22 23:19 | disposition home or self-care (01) ==
LOC: C.EDB 20:37 → C.EDC 23:19
DX: G43.909 Migraine, unspecified, not intractable, without status migrainosus (principal); E03.9 Hypothyroidism, unspecified; G47.30 Sleep apnea, unspecified; G25.81 Restless legs syndrome; F31.9 Bipolar disorder, unspecified; Z79.899 Other long term (current) drug therapy; Z87.42 Personal history of other diseases of the female genital tract; Z82.49 Family history of ischemic heart disease and other diseases of the circulatory system; Z83.3 Family history of diabetes mellitus

== ENCOUNTER 2017-11-23 13:59 | Emergency (ER) | payer BC ==
[~2017-11-23] VITALS: Ht 177.8 cm; Wt 119.0 kg
[~2017-11-23 13:59] MED LIST changes: +LAMO200T35 PO; -LAMO200T38 PO; +PRED20TA PO
[2017-11-23 14:07] VITALS: BP 140/89; PULSE 65; TEMP 36.7; O2SAT 99; Ht 177.8 cm; Wt 119.0 kg
[2017-11-23] MEDS ORDERED: ALPRTAB PO (14:29)
[2017-11-23] MEDS ORDERED: PROCHLORPERAZINE 5 MG/ML 2 ML VIAL IV STA (14:48)
[2017-11-23] MEDS ORDERED: KETOROLAC TROMETHAMINE 30 MG/ML VIAL IV STA (14:48)
[2017-11-23] MEDS ORDERED: SODIUM CHLORIDE 0.9% 1000ML 1,000 ML IV SCH (15:00)
--- NOTE | 2017-11-23 15:47 | EMERGENCY ROOM VISIT NOTE ---
History Report prepared by Rock: Scotty Mchugh Under the Supervision of: Dr. Adiel aRymond M.D. 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 She has a history of migraines. She notes her current headache seems to be worsening. She reports this headache is more left-sided. She currently rates her pain a 7/10 in severity. She also notes nausea and vomiting that began two days ago and is related to her migraine. She reports blurry vision. She states these symptoms are typical of her migraine history. She was seen at her PCP's office yesterday and was administered Toradol IM and Zofran, though no relief. She has taken Nortriptyline, Propranolol, and Tylenol today. She denies any fevers, chills, falls, or trauma. Source of History: patient Onset: five days SQL ANALYST Position: head Symptom Intensity: 7/10 Quality: ache Timing: other (persistent) Associated Symptoms: + nausea, + vomiting, No fevers, No chills Note: She notes blurry vision. She denies any falls or trauma. Review of Systems See HPI for pertinent positives & negatives. A total of 10 systems reviewed and were otherwise negative. Past Medical & Surgical Medical Problems: (1) Allergic rhinitis (2) Bipolar disorder (3) Depression (4) Endometriosis (5) Hypothyroidism (6) Migraine (7) Obesity (BMI 30-39.9) (8) Restless leg syndrome (9) Sleep apnea (10) Stricture of ureter Surgical Problems: (1) H/O gastric bypass (2) History of appendectomy (3) History of bladder surgery (4) History of hysterectomy (5) History of tonsillectomy and adenoidectomy Family History Diabetes mellitus Heart disease Hypertension Social History Smoking Status: Former Smoker Alcohol Use: none Drug Use: none Marital Status: single Housing Status: lives with family Occupation Status: employed Current/Historical Medications Scheduled Biotin (Biotin 5000), 5 MG PO DAILY Bupropion (Wellbutrin Sr), 100 MG PO TID Calcium Carbonate-Vitamin D W/ (Caltrate 600 Plus), 2 TAB PO BID Frovatriptan Succinate (Frova), 2.5 MG PO PRN/UD Lamotrigine (Lamictal), 200 MG PO AMPM Levothyroxine Sodium (Synthroid), 75 MCG PO DAILY [place] Carbonate ([place] Carbonate), 300 MG PO HS Magnesium Oxide (Mag-Ox), 400 MG PO DAILY Meloxicam (Mobic), 15 MG PO DAILY Omeprazole (Prilosec), 40 MG PO DAILY Pramipexole Dihydrochloride (Mirapex), 0.5 MG PO QPM Prednisone (Prednisone), 20 MG PO DIRECTED Propranolol Hcl (Inderal), 20 MG PO BID Ranitidine (Zantac), 150 MG PO QAM Risperidone (Risperdal), 1 MG PO QPM Tizanidine (Zanaflex), 4 MG PO HS Scheduled PRN Alprazolam (Alprazolam Xr), 0.5 MG PO BID PRN for Anxiety/Insomnia Diphenoxylate/Atropine (Lomotil), 1 TAB PO Q6 PRN for Diarrhea Allergies Coded Allergies: Metoclopramide (Verified Allergy, Severe, SOB, hypertention, anxiety, chest pain, 03/22/17) Quinolones (Verified Allergy, Mild, LVQ = HIVES, MELVIN. CIPRO, 03/22/17) Butorphanol (Verified Allergy, Unknown, _, 03/22/17) Iodine (Verified Allergy, Unknown, SEAFOOD = SWELLING, HIVES, 03/22/17) Levofloxacin (Verified Allergy, Unknown, HIVES, 03/22/17) TOLERATES CIPRO PER CONVERSATION WITH DR. HILTON Shellfish (Verified Allergy, Unknown, HIVES, 03/22/17) NSAIDs (Verified Adverse Reaction, Unknown, GI SYMPTOMS, 03/22/17) UNABLE TO TAKE ORAL NSAIDS DUE TO GASTRIC BYPASS SURGERY Physical Exam Vital Signs Date Time Temp Pulse Resp B/P (MAP) Pulse Ox O2 Delivery O2 Flow Rate FiO2 11/23/17 14:07 36.7 65 18 140/89 99 Room Air Physical Exam GENERAL: Patient is in no acute distress. HEENT: No acute trauma, normocephalic atraumatic, mucous membranes moist, no nasal congestion, no scleral icterus. Pupils equal and reactive to light. NECK: No stridor, no adenopathy, no meningismus, trachea is midline. LUNGS: Clear to auscultation bilaterally, no wheeze, no rhonchi, breath sounds equal. HEART: Without murmurs gallops or rubs, regular rate and rhythm. ABDOMEN: Soft, nontender, bowel sounds positive, no hernias, no peritonitis. EXTREMITIES: No cyanosis or edema, full range of motion of all the joints without pain or difficulty, no signs for acute trauma. NEUROLOGIC: Oriented x 3, no acute motor or sensory deficits, no focal weakness. No cerebellar deficits. SKIN: No rash, no jaundice, no diaphoresis Medical Decision & Procedures Medications Administered Medications (Trade) Dose Ordered Sig/Gely Route Start Time Stop Time Status Last Admin Dose Admin Sodium Chloride 1,000 ml @ 999 mls/hr Q1H1M IV 11/23/17 15:00 11/23/17 17:34 DC 11/23/17 15:07 999 MLS/HR Prochlorperazine Edisylate (Compazine Inj) 10 mg NOW STAT IV 11/23/17 14:48 11/23/17 14:51 DC 11/23/17 15:07 10 MG Diphenhydramine HCl (Benadryl Cap) 50 mg NOW ONCE PO 11/23/17 15:00 11/23/17 15:01 DC 11/23/17 15:08 50 MG Ketorolac Tromethamine (Toradol Inj) 30 mg NOW STAT IV 11/23/17 14:48 11/23/17 14:52 DC 11/23/17 15:08 30 MG ED Course 1512: The patient was evaluated in room A2. A complete history and physical exam was performed. 1448: Ordered Toradol 30 mg IV and Compazine 10 mg IV 1500: Ordered Benadryl 50 mg PO and Sodium Chloride 1,000 ml @ 999 mls/hr IV 1552: Dr. Hollis Lozano reassessed the patient at this time. She is feeling better and resting comfortably. I discussed the results and treatment plan with the patient. I answered all pertaining questions that she had. She expressed understanding and verbalized agreement. The patient will be discharged home. Medical Decision The patient is a 37 year old female who presents to the ED with complaints of headache. Differential diagnoses considered include migraine headache, dehydration, electrolyte imbalance, intracranial bleeding, meningitis, and head trauma. The patient presents with complaints of a left-sided headache. The headache feels like a migraine headache and she has had previous similar migraines. There is no meningismus, she is not febrile or toxic. She has no focal neurologic findings. She reports no head trauma. The patient received IV saline, IV Toradol, IV Compazine and IV Benadryl. She feels markedly better. She is being discharged. This headache is likely migrainous. Medication Reconcilliation Current Medication List: was personally reviewed by me Blood Pressure Screening Patient's blood pressure: Elevated blood pressure Blood pressure disposition: Referred to PCP Impression Primary Impression: Headache Scribe Attestation The scribe's documentation has been prepared under my direction and personally reviewed by me in its entirety. I confirm that the note above accurately reflects all work, treatment, procedures, and medical decision making performed by me. Departure Information Dispostion Home / Self-Care Referrals Estevan Carter M.D.([facility]) (PCP) Forms HOME CARE DOCUMENTATION FORM, IMPORTANT VISIT INFORMATION, WORK / SCHOOL INSTRUCTIONS Patient Instructions ED Headache Migraine, My [facility] Additional Instructions You experiences migraine headaches Please maintain hydration and get adequate rest. Follow up with Primary Care provider for ongoing care. Take medication as prescribed.
--- NOTE | 2017-11-23 16:02 | EMERGENCY ROOM VISIT NOTE ---
History First contact with patient: 14:25 Chief Complaint: ILLNESS Stated Complaint: MIGRAINE X5DAYS, NAUSEA/DIZZY History of Present Illness The patient is a 37 year old female with BIpolar disorder, Restless leg syndrome , Hypothyroidism, DELMER, obesity s/p gastri bypass, known history of migraines who presents to the Emergency Room with complaints of worsening headache x 4 days. She also reports associated nausea/vomiting corresponding with headaches, and blurry vision. She went to PCP yesterday ( Dr. Estevan Garcia) and was given IM Toradol and Zofran, however she has experienced inadequate relief since going home. At home she has been taking nortriptyline, propranolol, tylenol, without relief. She denies LOC, numbness weakness or tingling. She denies fevers, chills, abdominal pain, diarrhea, upper respiratory symptoms. Review of Systems Pt denies change in vision, fevers, chest pain, shortness of breath, nausea, vomiting, diarrhea, pain with urination, and melena. Past Medical/Surgical History Medical Problems: (1) Allergic rhinitis (2) Bipolar disorder (3) Depression (4) Endometriosis (5) Hypothyroidism (6) Migraine (7) Obesity (BMI 30-39.9) (8) Restless leg syndrome (9) Sleep apnea (10) Stricture of ureter Surgical Problems: (1) H/O gastric bypass (2) History of appendectomy (3) History of bladder surgery (4) History of hysterectomy (5) History of tonsillectomy and adenoidectomy Family History Diabetes mellitus Heart disease Hypertension Social History Smoking Status: Former Smoker Alcohol Use: none Drug Use: none Marital Status: single Housing Status: lives with family Occupation Status: employed Current/Historical Medications Scheduled Biotin (Biotin 5000), 5 MG PO DAILY Bupropion (Wellbutrin Sr), 100 MG PO TID Calcium Carbonate-Vitamin D W/ (Caltrate 600 Plus), 2 TAB PO BID Frovatriptan Succinate (Frova), 2.5 MG PO PRN/UD Lamotrigine (Lamictal), 200 MG PO AMPM Levothyroxine Sodium (Synthroid), 75 MCG PO DAILY [place] Carbonate ([place] Carbonate), 300 MG PO HS Magnesium Oxide (Mag-Ox), 400 MG PO DAILY Meloxicam (Mobic), 15 MG PO DAILY Omeprazole (Prilosec), 40 MG PO DAILY Pramipexole Dihydrochloride (Mirapex), 0.5 MG PO QPM Prednisone (Prednisone), 20 MG PO DIRECTED Propranolol Hcl (Inderal), 20 MG PO BID Ranitidine (Zantac), 150 MG PO QAM Risperidone (Risperdal), 1 MG PO QPM Tizanidine (Zanaflex), 4 MG PO HS Scheduled PRN Alprazolam (Alprazolam Xr), 0.5 MG PO BID PRN for Anxiety/Insomnia Diphenoxylate/Atropine (Lomotil), 1 TAB PO Q6 PRN for Diarrhea Physical Exam Vital Signs Date Time Temp Pulse Resp B/P (MAP) Pulse Ox O2 Delivery O2 Flow Rate FiO2 11/23/17 14:07 36.7 65 18 140/89 99 Room Air Physical Exam GENERAL: alert, well appearing, well nourished ,non-toxic EYE EXAM: normal conjunctiva, PERRL and EOM's grossly intact OROPHARYNX: no exudate, no erythema, lips, buccal mucosa, and tongue normal and mucous membranes are moist NECK: supple, no nuchal rigidity, no adenopathy, non-tender LUNGS: Clear to auscultation. Normal chest wall mechanics HEART: no murmurs, S1 normal and S2 normal ABDOMEN: abdomen soft, non-tender, normo-active bowel sounds, no masses, no rebound or guarding. NEURO EXAM: Normal sensorium, cranial nerves II-XII grossly intact, normal speech, no gross weakness of arms, no gross weakness of legs. No drift. Finger to nose intact. Gross sensation intact. Medical Decision & Procedures Medications Administered Medications (Trade) Dose Ordered Sig/Gely Route Start Time Stop Time Status Last Admin Dose Admin Sodium Chloride 1,000 ml @ 999 mls/hr Q1H1M IV 11/23/17 15:00 11/23/17 17:34 DC 11/23/17 15:07 999 MLS/HR Prochlorperazine Edisylate (Compazine Inj) 10 mg NOW STAT IV 11/23/17 14:48 11/23/17 14:51 DC 11/23/17 15:07 10 MG Diphenhydramine HCl (Benadryl Cap) 50 mg NOW ONCE PO 11/23/17 15:00 1/31/18 15:01 DC 11/23/17 15:08 50 MG Ketorolac Tromethamine (Toradol Inj) 30 mg NOW STAT IV 11/23/17 14:48 11/23/17 14:52 DC 11/23/17 15:08 30 MG Medical Decision 37 yo F with history of Bipolar disorder, Restless leg syndrome, Hypothyroidism , DELMER, migraines on Nortriptyline, Propranolol, presenting with worsening migraine headaches associated nausea/vomiting refractory to IM Toradol, Zofran given in clinic. Differential Diagnosis includes but is not limited to headache, tension headache , cluster headache, migraine, meningitis Given IV Toradol 30 mg Given IV Compazine 10 mg There was no evidence of infection on vitals signs or clinical exam, no findings suggestive of meningitis. Timing of Nausea/vomiting seemed to coincide with migraines making this likely source of nausea. Patient was given Toradol and Compazine as stated above. No focal neural sx's on exam. Upon reevaluation , the patient is feeling significantly better . GOMEZ improved and patient requested to go home. I discussed the findings and the treatment plan with the patient. She expresses agreement and understanding. She was discharged with follow up to PCP. Rest and hydration were recommended. Head Trauma GCS Score: 15 Medication Reconcilliation Current Medication List: was personally reviewed by me Impression Primary Impression: Migraine Additional Impression: Nausea & vomiting Departure Information Dispostion Home / Self-Care Condition GOOD Referrals Estevan Carter M.D.([facility]) (PCP) Patient Instructions ED Headache Migraine, My [facility] Additional Instructions You experiences migraine headaches Please maintain hydration and get adequate rest. Follow up with Primary Care provider for ongoing care. Take medication as prescribed. Resident Tracking Resident Involvement: Resident Care Provided Care Provided: Adult ED Problem Qualifiers
== END 2017-11-23 16:15 | disposition home or self-care (01) ==
LOC: C.EDB 14:00 → C.EDA 16:15
DX: R51 Headache (principal); F31.9 Bipolar disorder, unspecified; F32.9 Major depressive disorder, single episode, unspecified; E03.9 Hypothyroidism, unspecified; E66.9 Obesity, unspecified; G47.30 Sleep apnea, unspecified; Z83.3 Family history of diabetes mellitus; Z82.49 Family history of ischemic heart disease and other diseases of the circulatory system; Z87.891 Personal history of nicotine dependence

== ENCOUNTER 2018-06-12 11:05 | Emergency (ER) | payer BC ==
[~2018-06-12] VITALS: Ht 177.8 cm; Wt 120.0 kg
[~2018-06-12 11:05] MED LIST changes: -ALPR-411 PO; +ALPRTAB PO; -LAMO200T35 PO; -LTHSR/300 PO; +RANI150T85 PO; -ZNTT/150 PO
[2018-06-12 11:11] VITALS: TEMP 36.4; Ht 177.8 cm; Wt 120.0 kg
[2018-06-12] MEDS ORDERED: SODIUM CHLORIDE 0.9% 500ML 500 ML IV STA (11:23)
--- NOTE | 2018-06-12 11:40 | EMERGENCY ROOM VISIT NOTE ---
History Report prepared by Rock: Rosalino Gaspar Under the Supervision of: Dr. Tal Campbell M.D. First contact with patient: 11:15 Chief Complaint: CARDIAC ASSESSMENT Stated Complaint: HEART RACING FOR HOURS,DIZZY,SHAKING History of Present Illness The patient is a 38 year old female who presents to the Emergency Room with complaints of worsening palpitations beginning 3 or 4 hours ago. The patient reports that she began to feel dizzy 2.5 weeks ago. She notes that recently she has been waning off Xanax that she takes for depression. This past weekend she noted trembling. She denies feeling more anxious. She reports a fever of 100 last night but denies hot flashes, abdominal pain, chills, leg swelling, recent travel, or drug use. She notes that she drinks a couple shots and a mixed drink or a couple beers a few days per week. She reports drinking one diet soda per day and rarely drinks coffee. Source of History: patient Onset: 3 or 4 hours ago Position: other (heart) Quality: other (palpitations) Timing: worsening Associated Symptoms: + fevers (100 last night), No chills, No abdominal pain Note: reports dizziness and trembling denies leg swelling or hot flashes Review of Systems See HPI for pertinent positives and negatives. A total of ten systems were reviewed and were otherwise negative. Past Medical & Surgical Medical Problems: (1) Allergic rhinitis (2) Bipolar disorder (3) Depression (4) Endometriosis (5) Hypothyroidism (6) Migraine (7) Obesity (BMI 30-39.9) (8) Restless leg syndrome (9) Sleep apnea (10) Stricture of ureter Surgical Problems: (1) H/O gastric bypass (2) History of appendectomy (3) History of bladder surgery (4) History of hysterectomy (5) History of tonsillectomy and adenoidectomy Family History Diabetes mellitus Heart disease Hypertension Social History Smoking Status: Former Smoker Alcohol Use: other (a few days per week) Drug Use: none Marital Status: single Housing Status: lives with family Occupation Status: employed Current/Historical Medications Scheduled Alprazolam (Xanax), 0.25 MG PO DAILY Biotin (Biotin 5000), 5 MG PO DAILY Bupropion (Wellbutrin Sr), 100 MG PO TID Calcium Carbonate-Vitamin D W/ (Caltrate 600 Plus), 2 TAB PO BID Frovatriptan Succinate (Frova), 2.5 MG PO PRN/UD Lamotrigine (Lamictal), 200 MG PO AMPM Levothyroxine Sodium (Synthroid), 75 MCG PO DAILY [place] Carbonate ([place] Carbonate), 300 MG PO HS Magnesium Oxide (Mag-Ox), 400 MG PO DAILY Meloxicam (Mobic), 15 MG PO DAILY Omeprazole (Prilosec), 40 MG PO DAILY Pramipexole Dihydrochloride (Mirapex), 0.5 MG PO QPM Propranolol Hcl (Inderal), 20 MG PO BID Ranitidine (Zantac), 150 MG PO QAM Risperidone (Risperdal), 1 MG PO QPM Tizanidine (Zanaflex), 4 MG PO HS Scheduled PRN Diphenoxylate/Atropine (Lomotil), 1 TAB PO Q6 PRN for Diarrhea Hydroxyzine Pamoate (Vistaril), 1 CAP PO TID PRN for Anxiety/Agitation Allergies Coded Allergies: Metoclopramide (Verified Allergy, Severe, SOB, hypertention, anxiety, chest pain, 06/12/18) Quinolones (Verified Allergy, Mild, LVQ = HIVES, MELVIN. CIPRO, 06/12/18) Butorphanol (Verified Allergy, Unknown, _, 06/12/18) Iodine (Verified Allergy, Unknown, SEAFOOD = SWELLING, HIVES, 06/12/18) Levofloxacin (Verified Allergy, Unknown, HIVES, 06/12/18) TOLERATES CIPRO PER CONVERSATION WITH DR. HILTON Shellfish (Verified Allergy, Unknown, HIVES, 06/12/18) NSAIDs (Verified Adverse Reaction, Unknown, GI SYMPTOMS, 06/12/18) UNABLE TO TAKE ORAL NSAIDS DUE TO GASTRIC BYPASS SURGERY Physical Exam Vital Signs Date Time Temp Pulse Resp B/P (MAP) Pulse Ox O2 Delivery O2 Flow Rate FiO2 06/12/18 13:28 88 18 138/86 98 Room Air 06/12/18 12:12 91 18 139/86 99 Room Air 06/12/18 12:07 96 06/12/18 11:49 98 Room Air 06/12/18 11:11 36.4 103 20 146/99 100 Room Air Physical Exam GENERAL: Awake, alert, obese-appearing, NAD. Wearing glasses. HENT: Normocephalic, atraumatic. EYES: Normal conjunctiva. Sclera non-icteric. PERRL. No anisocoria. NECK: Supple. No nuchal rigidity. FROM. RESPIRATORY: CTAB, no rhonchi, wheezing, crackles CARDIAC: RRR, no MRG ABDOMEN: Soft, NTND, BS+ MSK: No chest wall TTP, no LE edema NEURO: GCS 15, CN 2-12 intact, moves all 4s on command SKIN: No rash or jaundice noted. Medical Decision & Procedures ER Provider Diagnostic Interpretation: Radiology results as stated below per my review and radiologist interpretation: CHEST 2 VIEWS ROUTINE CLINICAL HISTORY: palpitations COMPARISON STUDY: 03/17/2017 FINDINGS: The cardiac and mediastinal contours are normal. There is no evidence of focal pulmonary consolidation. There is no evidence of failure. No pleural effusions are visualized.[ IMPRESSION: No active disease in the chest. Electronically signed by: Rome Denson M.D. 06/12/2018 12:15 PM Dictated Date/Time: 06/12/2018 12:14 PM Laboratory Results 06/12/18 11:55 Red Blood Count 4.55, Mean Corpuscular Volume 93.0, Mean Corpuscular Hemoglobin 30.1, Mean Corpuscular Hemoglobin Concent 32.4, Mean Platelet Volume 9.8, Neutrophils (%) (Auto) 75.2, Lymphocytes (%) (Auto) 14.2, Monocytes (%) (Auto) 5.1, Eosinophils (%) (Auto) 5.1, Basophils (%) (Auto) 0.2, Neutrophils # (Auto) 6.85, Lymphocytes # (Auto) 1.30, Monocytes # (Auto) 0.47, Eosinophils # (Auto) 0.47, Basophils # (Auto) 0.02 06/12/18 11:55 Test 06/12/18 11:55 White Blood Count 9.13 K/uL (4.8-10.8) Red Blood Count 4.55 M/uL (4.2-5.4) Hemoglobin 13.7 g/dL (12.0-16.0) Hematocrit 42.3 % (37-47) Mean Corpuscular Volume 93.0 fL (80-100) Mean Corpuscular Hemoglobin 30.1 pg (25-34) Mean Corpuscular Hemoglobin Concent 32.4 g/dl (32-36) Platelet Count 278 K/uL (130-400) Mean Platelet Volume 9.8 fL (7.4-10.4) Neutrophils (%) (Auto) 75.2 % Lymphocytes (%) (Auto) 14.2 % Monocytes (%) (Auto) 5.1 % Eosinophils (%) (Auto) 5.1 % Basophils (%) (Auto) 0.2 % Neutrophils # (Auto) 6.85 K/uL (1.4-6.5) Lymphocytes # (Auto) 1.30 K/uL (1.2-3.4) Monocytes # (Auto) 0.47 K/uL (0.11-0.59) Eosinophils # (Auto) 0.47 K/uL (0-0.5) Basophils # (Auto) 0.02 K/uL (0-0.2) RDW Standard Deviation 45.3 fL (36.4-46.3) RDW Coefficient of Variation 13.3 % (11.5-14.5) Immature Granulocyte % (Auto) 0.2 % Immature Granulocyte # (Auto) 0.02 K/uL (0.00-0.02) Anion Gap 5.0 mmol/L (3-11) Est Creatinine Clear Calc Drug Dose 105.2 ml/min Estimated GFR () 80.8 Estimated GFR (Non- 69.7 BUN/Creatinine Ratio 14.1 (10-20) Calcium Level 9.4 mg/dl (8.5-10.1) Magnesium Level 2.4 mg/dl (1.8-2.4) Total Bilirubin 0.3 mg/dl (0.2-1) Direct Bilirubin mg/dl (0-0.2) Aspartate Amino Transf (AST/SGOT) 18 U/L (15-37) Alanine Aminotransferase (ALT/SGPT) 26 U/L (12-78) Alkaline Phosphatase 110 U/L (45-117) Total Protein 7.3 gm/dl (6.4-8.2) Albumin 3.7 gm/dl (3.4-5.0) Thyroid Stimulating Hormone (TSH) 2.900 uIu/ml (0.300-4.500) Chemistry Specimen Hemolysis Laboratory results reviewed by me Medications Administered Medications (Trade) Dose Ordered Sig/Gely Route Start Time Stop Time Status Last Admin Dose Admin Sodium Chloride 500 ml @ 999 mls/hr Q31M STAT IV 06/12/18 11:23 06/12/18 11:53 DC 06/12/18 11:23 999 MLS/HR Hydroxyzine HCl (Vistaril Tab) 25 mg NOW STAT PO 06/12/18 12:27 06/12/18 12:28 DC 06/12/18 12:31 25 MG ECG Per My Interpretation Indication: palpitations Rate (beats per minute): 82 Rhythm: normal sinus Findings: other (normal intervals and normal axis. TWI in V3. No STS changes.) ED Course 1118: The patient was evaluated in room C3. A complete history and physical exam was performed. 1300: I reevaluated the patient, who states that she feels fine. Discussed results and discharge instructions: She verbalized understanding and agreement. The patient is ready for discharge. Medical Decision Nursing notes reviewed. Ancillary studies and prior records reviewed. The patient is a 38 year old female who presents to the Emergency Room with complaints of worsening palpitations beginning 3 or 4 hours ago. Differential diagnosis: Etiologies such as premature contractions, electrolyte abnormality, cardiac dysrhythmia, thyroid dysfunction, pulmonary embolism, infection, gastrointestinal, as well as others were entertained. Patient was seen and evaluated the bedside. Of note patient was complaining some palpitations and racing heart. Patient denies any chest pain shortness of breath or lower extremity swelling. Patient also denies infectious symptoms. Yaima John has recently been trialed off Xanax. Also of note the patient does drink daily and does have several drinks each day on the weekend. Did discuss whether not the patient is taking a maintenance medicine as opposed to a maintenance medicine benzodiazepine. Patient states she has not. Patient did blood work completed, EKG, troponin, chest x-ray. The patient blood work is fairly unremarkable. Patient is a heart score less than 4 less likely ACS. The patient is no overt arrhythmia TSH electrolytes and H&H are normal. Patient is well-appearing does feel improved after hydroxyzine. I did discuss with patient that she needs to monitor her alcohol intake and that the recommended daily allowance for women is 1 drink per day. The patient was also given a prescription for Atarax. The patient was told that she may take this as needed. Patient was also told to follow-up with her PCP to discuss palpitations as well as a possible maintenance medicine for anxiety. Patient was given strict follow-up, discharge, and return precautions. All questions were answered. Patient was deemed suitable for outpatient follow-up at this time. Patient agreed with the plan of care and was safely discharged home. Medication Reconcilliation Current Medication List: was personally reviewed by me Blood Pressure Screening Patient's blood pressure: Elevated blood pressure Blood pressure disposition: Referred to PCP Impression Primary Impression: Palpitations Additional Impressions: Anxiety Encounter for alcohol cessation counseling Scribe Attestation The scribe's documentation has been prepared under my direction and personally reviewed by me in its entirety. I confirm that the note above accurately reflects all work, treatment, procedures, and medical decision making performed by me. Departure Information Dispostion Home / Self-Care Prescriptions Hydroxyzine Pamoate (VISTARIL) 25 Mg Cap 1 CAP PO TID Y for Anxiety/Agitation for 5 Days, #15 CAP 1 Refill Prov: Tal Campbell M.D. 06/12/18 Referrals Estevna Carter M.D.([facility]) (PCP) Forms IMPORTANT VISIT INFORMATION Patient Instructions ED Palpitations, My [facility] Additional Instructions Please return to the emergency department if you have worsening or recurrent symptoms not amenable to at-home treatment. Please call for a follow-up appointment with her primary care physician. Please take your medications as prescribed. If you have other concerns and/or complaints please feel free to also call your primary care physician's office or return the ED for further evaluation, management, and treatment. Take your medications as prescribed. Please follow-up with your primary care physician to discuss further outpatient follow-up and treatment for palpitations as well as a discussion about maintenance medication for anxiety. As discussed please limit your alcohol intake. Recommended daily allowance is 1 drink per day. You have been examined and treated today on an emergency basis only. This is not a substitute for, or an effort to provide, complete comprehensive medical care. It is impossible to recognize and treat all injuries or illnesses in a single emergency department visit. It is therefore important that you follow up closely with [facility], your PCP, and/or your specialist(s). Call as soon as possible for an appointment. Thank you for your time and consideration. I look forward to speaking with you again soon. Please don't hesitate to call us if you have any questions. Problem Qualifiers
[2018-06-12 11:49] VITALS: O2SAT 98
[2018-06-12 12:08] LABS: BASO % 0.2 %; BASO ABS # 0.02 K/uL (0-0.2); EOS % 5.1 %; EOS ABS # 0.47 K/uL (0-0.5); HEMATOCRIT 42.3 % (37-47); HEMOGLOBIN 13.7 g/dL (12.0-16.0); IG# 0.02 K/uL (0.00-0.02); LYMPH % 14.2 %; MEAN CORPUSCULAR HEMOGLOBIN 30.1 pg (25-34); MEAN CORPUSCULAR HGB CONC 32.4 g/dl (32-36); MEAN PLATELET VOLUME 9.8 fL (7.4-10.4); MONO % 5.1 %; MONO ABS # 0.47 K/uL (0.11-0.59); NEUT % 75.2 %; NEUT ABS # 6.85 K/uL (1.4-6.5); PLATELET COUNT 278 K/uL (130-400); RED CELL DISTRIBUTION WIDTH CV 13.3 % (11.5-14.5); RED CELL DISTRIBUTION WIDTH SD 45.3 fL (36.4-46.3); WHITE BLOOD COUNT 9.13 K/uL (4.8-10.8)
--- NOTE | 2018-06-12 12:17 | DIAGNOSTIC IMAGING REPORT ---
CHEST 2 VIEWS ROUTINE CLINICAL HISTORY: palpitations COMPARISON STUDY: 03/17/2017 FINDINGS: The cardiac and mediastinal contours are normal. There is no evidence of focal pulmonary consolidation. There is no evidence of failure. No pleural effusions are visualized.[ IMPRESSION: No active disease in the chest. Electronically signed by: Rome Denson M.D. 06/12/2018 12:15 PM Dictated Date/Time: 06/12/2018 12:14 PM
[2018-06-12] MEDS ORDERED: hydrOXYzine HCL 25 MG TAB PO STA (12:27)
[2018-06-12 12:41] LABS: ALBUMIN 3.7 gm/dl (3.4-5.0); CALCIUM 9.4 mg/dl (8.5-10.1); CREATININE 1.02 mg/dl (0.60-1.20)
[2018-06-12 12:44] LABS: TOTAL PROTEIN 7.3 gm/dl (6.4-8.2)
[2018-06-12] MEDS ORDERED: HYDR25CA PO (13:06)
[2018-06-12] MEDS ORDERED: ALPR0.25 PO (13:10)
[2018-06-12 13:28] VITALS: BP 138/86; PULSE 88; O2SAT 98
== END 2018-06-12 13:48 | disposition home or self-care (01) ==
LOC: C.EDB 11:07 → C.EDC 13:48
DX: R00.2 Palpitations (principal); F41.9 Anxiety disorder, unspecified; F31.9 Bipolar disorder, unspecified; E03.9 Hypothyroidism, unspecified; E66.9 Obesity, unspecified; G47.30 Sleep apnea, unspecified; Z87.891 Personal history of nicotine dependence; Z79.899 Other long term (current) drug therapy; Z88.8 Allergy status to other drugs, medicaments and biological substances; Z91.013 Allergy to seafood